=== PATIENT | male | born 1965 | race Caucasian/White ===

== ENCOUNTER 2020-03-02 07:12 | Outpatient (CLI) | payer OTHER, SELFPAY ==
--- NOTE | ~2020-03-02 | MR_ITS ---
EXAMINATION: MR brain IAC wo con DATE: 03/02/2020 08:29 INDICATION: Confusion. Altered mental status. TECHNIQUE: Magnetic resonance imaging (MRI) of the brain and brainstem was performed without intraven ous contrast. Sequences included sagittal and axial T1-weighted FSE, axial diffusion-weighted FS EPI, axial T2*-weighted GRE, axial T2-weighted FLAIR Propeller, and axial T2-weighted Propeller. Apparent diffusion coefficient (ADC) maps were created. COMPARISON: None. FINDINGS: There are patchy areas of acute infarct involving left frontotemporal parietal region. Ther e is chronic encephalomalacia in the frontal lobes bilaterally. There is no intracranial hemorrhage o r abnormal mass lesion. The ventricles are normal in size. There is mild mucosal thickening in the pa ranasal sinuses. The orbits are normal. The mastoid air cells are normal. IMPRESSION: 1. Patchy areas of acute infarct involving left frontotemporal parietal region. 2. Chronic encephalomalacia in the bilateral frontal lobes. Reviewed, dictated and finalized at location A.
--- NOTE | ~2020-03-02 | US_ITS ---
EXAMINATION: US carotid duplex BI DATE: 03/02/2020 08:42 INDICATION: Acute infarct in left frontotemporal parietal region. TECHNIQUE: Grayscale, color Doppler, and pulsed Doppler images of the cervical carotid arteries were obtained. The degree of vessel stenosis is placed in one of the following categories: normal, <50%, 5 0-69%, >=70% but less than near-occlusion, near-occlusion, or total occlusion. Note that percent sten osis relative to normal distal artery lumen diameter is indirectly measured from velocity measurement s as described by Ramón, et al. Radiology 2003; 229:340-346. COMPARISON: None. FINDINGS: RIGHT: The right common carotid artery (CCA) peak systolic velocity (PSV) is 100 cm/s. The right internal ca rotid artery (ICA) PSV is 96 cm/s. The right ICA end-diastolic velocity (EDV) is 23 cm/s. The right I CA/CCA PSV ratio is 1.0. Grayscale and color Doppler images yield an estimate of <50% diameter reduct ion from plaque in the ICA. There is antegrade flow in the right vertebral artery. LEFT: The left CCA PSV is 95 cm/s. The left ICA PSV is 43 cm/s. The left ICA EDV is 16 cm/s. The left ICA/C CA PSV ratio is 0.5. Grayscale and color Doppler images yield an estimate of <50% diameter reduction from plaque in the ICA. There is antegrade flow in the left vertebral artery. IMPRESSION: 1. <50% stenosis in the right internal carotid artery. 2. <50% stenosis in the left internal carotid artery. Reviewed, dictated and finalized at location A.
== END 2020-03-02 07:13 | disposition home or self-care (01) ==
LOC: CHSIMG 07:14
PROVIDERS: PCP Internal Medicine; Visit Provider Internal Medicine
DX: R41.82 Altered mental status, unspecified (principal); I63.9 Cerebral infarction, unspecified
CPT/HCPCS: 70551; 93880

== ENCOUNTER 2022-01-25 10:16 | Outpatient (CLI) | payer OTHER, SELFPAY ==
--- NOTE | ~2022-01-25 | XR_ITS ---
XR chest 2V DATE: 01/25/2022 10:56 INDICATION: Cerebrovascular accident one year ago TECHNIQUE: 2 views COMPARISON: None FINDINGS: Normal heart size. Aortic arch calcification. No hilar or mediastinal enlargement. Mild discoid atelectasis or scarring overlying central and lower lung zones on lateral view. No pulmo nary consolidation, pleural effusion, pulmonary vascular congestion or pneumothorax is detected. Mild degenerative spurring of the thoracic spine. IMPRESSION: Minimal discoid atelectasis or scarring in the lower lung; otherwise no active cardiac pu lmonary disease Reviewed, dictated and finalized at location B. IMPRESSION: Minimal discoid atelectasis or scarring in the lower lung; otherwis e no active cardiac pulmonary disease
[2022-01-25 10:46] LABS: Basophils Percent Auto 0.9 % (0.0-1.0); Eosinophils Absolute Auto 0.21 K/mm3 (0.02-0.50); Eosinophils Percent Auto 1.9 % (1.0-6.0); Hematocrit 49.4 % (40.0-54.0); Hemoglobin 16.9 g/dL (14.0-18.0); Immature Granulocyte Absolute 0.08 K/mm3 (0.00-0.00); Immature Granulocyte Percent A 0.7 % (0.0-0.0); Lymphocytes Absolute Auto 2.44 K/mm3 (1.10-4.50); Lymphocytes Percent Auto 22.4 % (18.0-42.0); Mean Corpuscular HGB Conc 34.2 g/dL (32.0-36.0); Mean Corpuscular Hemoglobin 32.1 pg (27.0-31.0); Mean Corpuscular Volume 93.9 fL (78.0-102.0); Mean Platelet Volume 8.4 fl (8.7-11.0); Monocytes Absolute Auto 0.63 K/mm3 (0.10-0.90); Monocytes Percent Auto 5.8 % (2.0-11.0); Neutrophils Absolute Auto 7.5 K/mm3 (1.7-7.2); Neutrophils Percent Auto 68.3 % (50.0-70.0); Platelet Count Result 325 K/mm3 (150-420); Red Blood Count 5.26 M/mm3 (4.70-6.10); Red Cell Distribution Width 13.8 % (11.6-14.4); White Blood Count 10.9 K/mm3 (4.8-10.8)
[2022-01-25 10:50] LABS: Add Urine Microscopic? NO; Appearance Urine Clear (Clear); Bilirubin Urine Negative (Negative); Blood Urine Negative (Negative); Color Urine Light Yellow (Yellow); Glucose Urine UA Negative (Negative); Ketones Urine Negative (Negative); Leukocyte Esterase Ur Negative (Negative); Nitrate Urine Negative (Negative); Protein Urine Negative (Negative); Urobilinogen Urine 0.2 mg/dL (0.2-1.0); pH Urine 6.5 (5.0-8.0)
[2022-01-25 11:22] LABS: Alanine Aminotransferase 20 U/L (16-63); Albumin Level 4.2 g/dL (3.4-5.0); Alkaline Phosphatase 97 U/L (46-116); Anion Gap 6 mmol/L (8-16); Aspartate Amino Transferase 14 U/L (15-37); Bilirubin,Total 0.4 mg/dL (0.00-1.00); Blood Urea Nitrogen 9 mg/dL (7-18); Calcium 8.9 mg/dL (8.5-10.1); Carbon Dioxide 32 mmol/L (21-32); Chloride 103 mmol/L (98-108); Cholesterol 182 mg/dL (0-200); Estimated Glomerular Filt Rate > 60; Glucose 83 mg/dL (70-99); HDL Direct 34 mg/dL (40-60); LDL Cholesterol Calculated 111 mg/dL (<130); Osmolality Calculated 289 mOsm/kg (285-295); Potassium 4.7 mmol/L (3.5-5.1); Prostate Specific Antigen 1.7 ng/mL (< OR = 4.0); Sodium 141 mmol/L (136-145); Thyroid Stimulating Hormone 1.21 uIU/mL (0.36-3.74); Total Protein 7.4 g/dL (6.4-8.2); Triglycerides 185 mg/dL (0-150)
== END 2022-01-25 10:17 | disposition home or self-care (01) ==
LOC: CHSLAB 10:17
PROVIDERS: PCP Internal Medicine; Visit Provider Internal Medicine
DX: Z00.00 Encounter for general adult medical examination without abnormal findings (principal); I63.9 Cerebral infarction, unspecified; Z12.5 Encounter for screening for malignant neoplasm of prostate
CPT/HCPCS: 36415; 71046; 80053; 80061; 81003; 84153; 84443; 85025; G0103

== ENCOUNTER 2022-02-22 02:28 | Day surgery (SDC) | payer OTHER, SELFPAY ==
[2022-02-16 13:42] VITALS: BMI 34.8
[2022-02-22 06:31] VITALS: BP 131/84; PULSE 85; RESP 18; TEMP 36.5; O2SAT 96; BMI 34.0
[2022-02-22] MEDS: LACTATED RINGERS 1,000 ML 150 ML IV CONT (06:43)
--- NOTE | 2022-02-22 07:31 | SUR.PREOP ---
Patient did not tolerate prep. Vomited majority of prep and reports stools as chocolate milk colored. Dr. Hernandez aware and will reschedule colonoscopy at a later date.
== END 2022-02-22 07:38 | disposition home or self-care (01) ==
PROVIDERS: PCP Internal Medicine; Visit Provider Surgery
PROC: 0DJD8ZZ Inspection of Lower Intestinal Tract, Via Natural or Artificial Opening Endoscopic (ICD-10-PCS; CPT 45378; principal; 2022-02-22 07:30)
DX: Z12.11 Encounter for screening for malignant neoplasm of colon (principal)
CPT/HCPCS: 99212; G0463; J7120

== ENCOUNTER 2022-03-05 08:38 | Outpatient (CLI) | payer OTHER, SELFPAY ==
--- NOTE | 2022-03-05 08:30 | ECG_ITS ---
Measurements Intervals [place] Rate: 76 P: 14 KS: 144 QRS: -8 QRSD: 113 T: -19 QT: 360 QTc: 406 Interpretive Statements SINUS RHYTHM SUSPECT PRIOR INFERIOR MYOCARDIAL INFARCTION [40+ ms Q WAVE AND/OR ST/T ABNORMALITY IN II/aVF], OF INDETERMINATE AGE NO PREVIOUS ECG AVAILABLE FOR COMPARISON Electronically Signed On 03-05-2022 12:52:36 CDT by Scar Guaman M.D.
== END 2022-03-05 08:39 | disposition home or self-care (01) ==
LOC: ANHSURGERY 08:42
PROVIDERS: PCP Internal Medicine; Visit Provider Surgery
DX: Z01.818 Encounter for other preprocedural examination (principal); Z72.0 Tobacco use; K42.9 Umbilical hernia without obstruction or gangrene; R94.31 Abnormal electrocardiogram [ECG] [EKG]
CPT/HCPCS: 36415; 86850; 86900; 86901; 93005

== ENCOUNTER 2022-03-07 00:18 | Day surgery (SDC) | payer OTHER, SELFPAY ==
[2022-03-01 14:38] VITALS: BMI 34.5
--- NOTE | 2022-03-01 14:46 | PC.NURSE ---
Report to the Outpatient Waiting Room, entrance under the green pavilion located off [facility], at time 9:30 on date 03/07/22. Planned Procedure Time: 11:30. Time changes happen often and if your time is changed the preop area will call you the afternoon before. - You and your visitor will be asked to self-screen and do not enter if you have any COVID symptoms. - We encourage only one visitor and NO visitors under age 16 are allowed at this time. Your visitor will receive communication by the phone number that is given day of service. - The patient visitor is requested to social distance or may leave the building when not with patient due to restrictions. - A mask is OPTIONAL within the hospital. Patients may have clear liquids (water, carbonated beverages, clear teas, apple juice) until 3 hours prior to surgery (8:30) with a maximum of 20 ounces. - No food from midnight until time of surgery Take the following medications with a SIP of water the morning of surgery: NONE Medications to discontinue per physician: N/A Date to take last dose: N/A Please no make-up, nail new zealander, hairspray, perfume, deodorant, or body powder the day of surgery. No jewelry (including any body piercings) or valuables the day of surgery, leave them at home. Please take a shower or bath the night before, or the morning of, surgery with an antibacterial soap (HIBICLENS). Wear comfortable, loose fitting clothing. - Jewelry must be removed prior to entering the operating room. Rings and piercings that are not removed may be cut off. - The hospital will not accept responsibility for valuables. - Please leave all valuables, including medications, at home the day of surgery. If you are going home after surgery, a licensed otr driver must drive you home. - NO public transportation without another adult. - We recommend that an adult stay with you for 24 hours following discharge. - We also recommend that you do not drive, make important decision, drink alcoholic beverages, or take any drugs that were not prescribed by your health care provider for at least 24 hours after your discharge time. Follow any additional instructions given to you from your surgeon. If you or anyone in your household have experienced Covid symptoms in the past week, please notify your surgeon or the nurse liaison at the phone number below for possible testing. Telephone instructions given to PT MOTHER - LORETO and asked if any additional questions and then verbalized understanding. Patient advised to call surgeon office or pre surgery nurse liaison [phone] if any additional questions.
[2022-03-07] VITALS (8 sets, daily range): BP systolic 125–139; BP diastolic 81–95; PULSE 85–98; RESP 12–20; TEMP 36.5–37.2; O2SAT 90–100; BMI 33.5
[2022-03-07] MEDS: ACETAMINOPHEN 500 MG TABLET 1000 MG PO (10:16)
[2022-03-07] MEDS: LACTATED RINGERS 1,000 ML 30 ML IV CONT ×2 (10:25→14:00)
[2022-03-07] MEDS: KETOROLAC 15 MG/ML VIAL (*BKC) IV PUSH (10:29)
--- NOTE | 2022-03-07 10:33 | WPDANESEPPF ---
Anes - Initial Pre Proc Eval Procedure: Operation Date: 03/07/22 11:30 Proposed Procedures p Laparoscopic Umbilical Hernia Repair with Mesh, Davinci Assisted - Lloyd Hernandez DO Date/Time: 03/07/22 10:33 Surgeon: Lloyd Hernandez DO Pre Op Diagnosis: umbilical hernia Patient Data Age: 56 Gender: M Height: 1.66 m Weight: 92.7 kg Last Vital Signs Temp 36.5 C 03/07/22 09:35 Pulse 88 03/07/22 09:35 Resp 16 03/07/22 09:35 BP 138/95 H 03/07/22 09:35 Pulse Ox 99 03/07/22 09:35 O2 Del Method Room Air 03/07/22 09:35 Allergies Allergy/AdvReac Type Severity Reaction Status Date / Time No Known Allergies Allergy Unknown Verified 03/07/22 09:42 Home Medications Medication Instructions Recorded Confirmed Type aspirin 81 mg tablet,delayed 81 mg PO DAILY 02/15/22 03/01/22 History release atorvastatin 10 mg tablet 10 mg PO DAILY 02/16/22 03/01/22 History peg-electrolyte solution 420 gram 240 ml PO Q10M #4,000 mL 03/06/22 Rx oral solution Patient hx anesthesia problems: none Family hx anesthesia problems: none Results Review: All pre-operative results and documents have been reviewed as part of the pre-operative evaluation. [facility] Past Medical History Medical History Stroke Surgical History Surgical History History of ankle surgery Hx of appendectomy Family History Family History Other Cancer Nervous disorder Social History Social History Smoking packs per day: 1 Smoking cigarettes per day: 20.0 Years smoked: 33 Smoking pack-years: 33.00 Smoking status: Current every day smoker Tobacco type: cigarettes Alcohol intake: never Alcohol use details: stopped drinking a long time ago Substance use: current Substance use type: marijuana Living arrangements: with family Spiritual care concerns: No Anes - Eval Final PreProcedure Day of Procedure 11/02/22 10:33 Patient weight: obese Heart: regular rate and rhythm Lungs: clear to auscultation Airway: Mallampati scale class II and special considerations poor dentition Neurological: alert and oriented Last oral intake: >/= 8 hours ASA classification: III Emergent: no Anesthetic plan: proceed Anesthesia type and monitoring: general ETT and standard monitoring Results Review: All pre-operative results and documents have been reviewed as part of the pre-operative evaluation. Informed Consent: The patient's anesthetic plan and its attendant risks and benefits were discussed with the patient/family/POA. Questions were solicited and answers provided to the satisfaction of the patient/family/POA.
--- NOTE | 2022-03-07 11:38 | SUR.PREOP ---
1138- Notified patient, Live and mother procedure start time will be delayed. Patient and mother verbalized understanding.
--- NOTE | 2022-03-07 11:44 | WPDHPUPDATE1 ---
History and Physical Update Update Date/Time: 03/07/22 11:44 History and Physical has been reviewed, including an updated exam of the patient. There are NO changes in the patient's condition. Risks, benefits, and alternatives have been discussed and questions answered. Patient agrees to proceed with procedure.
[2022-03-07] MEDS: ceFAZolin 2 GM/D5W 50 ML 2 GM/50 ML BAG IVPB (12:19)
--- NOTE | 2022-03-07 14:04 | W.PM.PROC2 ---
Procedure Note - Detailed Date of Procedure 03/07/22 Pre-op Diagnosis umbilical hernia Post-op Diagnosis Same Procedure Performed Laparoscopic Umbilical Hernia Repair with Mesh, da Mark assisted Surgeon Lloyd Hernandez DO Anesthesia General and Local (Exparel) Indications This is a 56-year-old man who presented with an umbilical bulge that he noticed several years ago. This has gradually increased in size. He was found to have a 2 cm umbilical hernia on physical exam. Discussions were made with the patient about treatment options and decision was made to proceed with robotic assisted laparoscopic umbilical hernia repair with mesh. Findings Laparoscopic umbilical hernia repair was performed. A robotic transabdominal preperitoneal approach was utilized. The patient was found to have a 1 cm umbilical hernia containing preperitoneal fat. The hernia sac was reduced along with the preperitoneal fat. The hernia defect was closed using 0 Stratafix running absorbable suture. A 15 cm x [address] mesh was then placed within the preperitoneal pocket and secured to the abdominal wall using 3-0 Vicryl simple interrupted sutures. No specimens were obtained for pathology. Description of Procedure Procedure as well as risks, benefits, and alternatives were discussed with the patient. Written consent was obtained and placed in chart prior to procedure. Patient was brought back to surgical suite. He was placed supine on operating table. Time-out was done to confirm patient and procedure. he was then intubated by the anesthesia department. A bump was placed under his left hip, and the bed was flexed slightly to extend the space between his costal margin and iliac crest. his abdomen was prepped and draped in sterile fashion using chlorhexidine prep. A 5 millimeter incision was made in the left upper quadrant, and a 5 millimeter Optiview trocar was advanced through the abdominal layers under direct visualization. Once inside the abdominal cavity, carbon dioxide insufflation was used to create a pneumoperitoneum. his abdomen was inspected. An 8 millimeter incision was made in the left lower quadrant, and an 8 millimeter robotic trocar was placed under direct visualization. Another 8 millimeter incision was made in the left lateral abdomen, and an 8 millimeter robotic trocar was placed under direct visualization. Exparel was infiltrated along the lateral abdominal daigle to perform a transversus abdominis plane block bilaterally. The 5 millimeter port was removed, the incision was extended to 12 millimeters, and a 12 millimeter air seal port was placed under direct visualization. A Ulices-Zhu cone was also used to place an 0-Vicryl simple interrupted suture at this trocar site. The robotic arms were brought up to the patient's bedside and secured to the ports. The camera and instruments were inserted, and I then moved over to the robotic console and took control of the camera and instruments. After careful thorough inspection of the abdominal cavity, I began my dissection at the hernia. I began creating a preperitoneal pocket along the left lateral abdominal wall and extended this medially to the hernia sac and then carefully dissected the hernia sac and preperitoneal fat down from the hernia defect. The preperitoneal plane was then dissected far enough to the right lateral side to allow for at adequate space for mesh placement.. I then measured the hernia size. The hernia measured 1 cm. The fascia was closed using an 0-Stratafix running suture in a vertical fashion. A Ventralight ST 15 cm x 10 cm mesh was then placed within the preperitoneal pocket.. This was oriented vertically with the mesh centered on the hernia defect. The mesh was then secured At the 4 corners and central portion of the mesh using 3-0 Vicryl simple interrupted sutures. The peritoneum was then closed over the mesh using 3-0 V lock running absorbable suture. Th
== END 2022-03-07 16:05 | disposition home or self-care (01) ==
PROVIDERS: PCP Internal Medicine; Visit Provider Surgery
PROC: (CPT 49652; principal; 2022-03-07 11:30)
DX: K42.9 Umbilical hernia without obstruction or gangrene (principal); Z86.73 Personal history of transient ischemic attack (TIA), and cerebral infarction without residual deficits; Z79.82 Long term (current) use of aspirin; F17.210 Nicotine dependence, cigarettes, uncomplicated; F12.90 Cannabis use, unspecified, uncomplicated; E66.9 Obesity, unspecified; Z68.33 Body mass index [BMI] 33.0-33.9, adult
CPT/HCPCS: 49652; S2900; A9270; C1781; C9290; J0330; J0690; J1100; J1170; J1885; J2250; J2405; J2704; J2710; J2765; J3010; J7030; J7120

== ENCOUNTER 2022-08-27 09:36 | Outpatient (CLI) | payer OTHER, SELFPAY ==
[2022-08-27 09:47] LABS: Basophils Absolute Auto 0.12 K/mm3 (0.00-0.10); Basophils Percent Auto 1.1 % (0.0-1.0); Eosinophils Absolute Auto 0.15 K/mm3 (0.02-0.50); Eosinophils Percent Auto 1.4 % (1.0-6.0); Hematocrit 50.7 % (40.0-54.0); Hemoglobin 17.3 g/dL (14.0-18.0); Immature Granulocyte Absolute 0.06 K/mm3 (0.00-0.00); Immature Granulocyte Percent A 0.6 % (0.0-0.0); Lymphocytes Absolute Auto 2.41 K/mm3 (1.10-4.50); Lymphocytes Percent Auto 23.1 % (18.0-42.0); Mean Corpuscular HGB Conc 34.1 g/dL (32.0-36.0); Mean Corpuscular Volume 93.7 fL (78.0-102.0); Mean Platelet Volume 8.2 fl (8.7-11.0); Monocytes Absolute Auto 0.53 K/mm3 (0.10-0.90); Monocytes Percent Auto 5.1 % (2.0-11.0); Neutrophils Absolute Auto 7.2 K/mm3 (1.7-7.2); Neutrophils Percent Auto 68.7 % (50.0-70.0); Platelet Count Result 320 K/mm3 (150-420); Red Blood Count 5.41 M/mm3 (4.70-6.10); Red Cell Distribution Width 12.3 % (11.6-14.4); White Blood Count 10.4 K/mm3 (4.8-10.8)
[2022-08-27 10:39] LABS: Alanine Aminotransferase 29 U/L (16-63); Alkaline Phosphatase 102 U/L (46-116); Anion Gap 9 mmol/L (8-16); Aspartate Amino Transferase 17 U/L (15-37); Bilirubin,Total 0.4 mg/dL (0.00-1.00); Blood Urea Nitrogen 10 mg/dL (7-18); Calcium 8.9 mg/dL (8.5-10.1); Carbon Dioxide 28 mmol/L (21-32); Chloride 104 mmol/L (98-108); Cholesterol 173 mg/dL (0-200); Creatine Kinase 68 U/L (39-308); Estimated Glomerular Filt Rate > 60; Free T3 3.44 pg/mL (2.18-3.98); Free T4 Free Thyroxine 1.08 ng/dL (0.76-1.46); Glucose 98 mg/dL (70-99); HDL Direct 36 mg/dL (40-60); LDL Cholesterol Calculated 105 mg/dL (<130); Osmolality Calculated 291 mOsm/kg (285-295); Potassium 4.3 mmol/L (3.5-5.1); Sodium 141 mmol/L (136-145); Thyroid Stimulating Hormone 2.45 uIU/mL (0.36-3.74); Total Protein 7.6 g/dL (6.4-8.2); Triglycerides 162 mg/dL (0-150)
== END 2022-08-27 09:37 | disposition home or self-care (01) ==
LOC: CHSLAB 09:38
PROVIDERS: PCP Internal Medicine; Visit Provider Internal Medicine
DX: E78.2 Mixed hyperlipidemia (principal); R53.82 Chronic fatigue, unspecified
CPT/HCPCS: 36415; 80053; 80061; 82550; 84439; 84443; 84481; 85025

== ENCOUNTER 2022-09-06 09:50 | Outpatient (CLI) | payer OTHER, SELFPAY ==
--- NOTE | ~2022-09-06 | CT_ITS ---
CT Scan of the Chest without Contrast: Clinical Indication: Lung cancer screening, personal history of tobacco dependence Technique: Contiguous sections were acquired throughout the chest without intravenous contrast. Dose reduction technique was used on this scan by utilizing automated exposure control and iterative recon struction technique. The dose-length product (DLP) was 189.93 mGy-cm. Findings: There is no evidence of any significant mediastinal, hilar or axillary lymphadenopathy. The mediastin al soft tissues appear normal. There is no evidence of pleural or pericardial effusion. There is a 5 mm nodule in the superior segment right lower lobe adjacent to the fissure (axial image 39). There is a noncalcified 5 mm nodule in the medial left upper lobe (axial image 48). There is a s mall calcified left infrahilar lymph node versus pulmonary nodule, with benign appearance in either e vent. Calcified left lower lobe granuloma noted at the left lung base. There is probable minimal emph ysematous change in the lungs. Images through the upper abdomen reveal no abnormalities. Impression: Lung RADS 2: Benign appearance. 12 month follow-up screening CT recommended. Reviewed, dictated and finalized at location . Impression: Lung RADS 2: Benign appearance. 12 month follow-up screening CT recommended.
== END 2022-09-06 09:51 | disposition home or self-care (01) ==
LOC: CHSIMG 09:51
PROVIDERS: PCP Internal Medicine; Visit Provider Internal Medicine
DX: Z12.2 Encounter for screening for malignant neoplasm of respiratory organs (principal); Z87.891 Personal history of nicotine dependence
CPT/HCPCS: 71271

== ENCOUNTER 2023-09-10 11:56 | Emergency (ER) | payer OTHER, SELFPAY ==
--- NOTE | ~2023-09-10 | CT_ITS ---
EXAMINATION: CT abdomen pelvis w con DATE: 09/10/2023 13:05 INDICATION: Left lower quadrant abdominal pain. Diarrhea. TECHNIQUE: Computed tomography (CT) of the abdomen and pelvis was performed with 100 mL Omnipaque 350 intravenous contrast. Automated exposure control and iterative reconstruction technique were employe d. The dose-length product was 1016.86 mGy-cm. COMPARISON: None. FINDINGS: The visualized portions of the lung bases demonstrate mild atelectasis. A calcified left chris ng nodule is consistent with old granulomatous disease. No pleural effusion. The heart size is normal . No pericardial effusion. The liver, gallbladder, spleen, pancreas, and adrenal glands are normal. T here are cysts in right kidney measuring up to 4.8 cm. There are 3 stones in right kidney measuring u p to 5 mm. There is a 9 mm stone in left kidney. The prostate is mildly enlarged. There are scattered diverticula in the colon. There is wall thickening of the sigmoid colon with surrounding fat strandi ng. This area of sigmoid colon is small in caliber, likely a stricture. There is a fistula between ad jacent areas of sigmoid colon. There is a fistula from sigmoid colon to an adjacent small bowel loop. The colon is distended proximal to this area. The appendix is not visualized. There are no pathologi nichelle enlarged lymph nodes. There is no free intraperitoneal fluid. There is mild thoracic and lumbar spondylosis. IMPRESSION: 1. Chronic diverticulitis involving sigmoid colon with stricture and partial obstruction. Reviewed, dictated and finalized at location A. IMPRESSION: 1. Chronic diverticulitis involving sigmoid colon with stricture and partial ob struction.
[2023-09-10 11:56] VITALS: BP 155/100; PULSE 76; RESP 18; TEMP 36.7; O2SAT 99
--- NOTE | 2023-09-10 11:58 | ED.ABDPAIN ---
HPI - Abdominal Pain General Chief Complaint: Abdominal Pain Stated Complaint: ABD pain Time Seen by Provider: 09/10/23 11:56 Source: patient Mode of arrival: ambulatory Limitations: no limitations History of Present Illness HPI narrative: patient is a 58-year-old male with left lower quadrant abdominal pain for the past week. He was at the primary doctor today and they sent into the ER for evaluation. MD elicited complaint: abdominal pain Pertinent past history: none Onset (ago): week(s) (1) Pain Consistency: intermittent Location: LLQ Severity: severe Pain scale (0-10): 8 Quality: sharp Radiation: none Migration to: suprapubic Exacerbating factors: nothing Relieving factors: nothing Associated symptoms: nausea, vomiting and diarrhea Related Data Home Medications Medication Instructions Recorded Confirmed aspirin 81 mg tablet,delayed 81 mg PO DAILY 02/15/22 09/10/23 release atorvastatin 10 mg tablet 10 mg PO DAILY 02/16/22 09/10/23 Allergies Allergy/AdvReac Type Severity Reaction Status Date / Time No Known Allergies Allergy Unknown Verified 09/10/23 13:45 Review of Systems Review of Systems: All systems reviewed & are unremarkable except as noted in HPI and below Constitutional: Constitutional: Reports no additional constitutional complaints Eyes: Eyes: Reports no additional eye complaints ENT: Reports system reviewed and no additional complaints, except as documented Cardiovascular: Cardiovascular: Reports no additional cardiovascular complaints Respiratory: Respiratory: Reports no additional respiratory complaints Gastrointestinal: Gastrointestinal: Reports no additional gastrointestinal complaints Genitourinary: Genitourinary: Reports no additional male genitourinary complaints Musculoskeletal: Musculoskeletal: Reports no additional musculoskeletal complaints Integumentary/Breasts: Skin/Breast: Reports system reviewed and no additional complaints, except as docu Neurologic: Reports system reviewed and no additional complaints, except as documented Psychiatric: Psychiatric: Reports no additional psychiatric complaints Endocrine: Endocrine: Reports no additional endocrine complaints Hematologic/Lymphatic: Hematologic/Lymphatic: Reports no additional hematologic/lymphatic complaints Allergic/Immunologic: Allergic/Immunologic: Reports no additional allergic/immunologic complaints PMFSH Past Medical History Medical History Stroke Surgical History Surgical History H/O umbilical hernia repair 03/07/22 Laparoscopic Umbilical Hernia Repair with Mesh, da Mark assisted History of ankle surgery Hx of appendectomy Family History Family History Other Cancer Nervous disorder Social History Social History Smoking packs per day: 1 Smoking cigarettes per day: 20.0 Years smoked: 33 Smoking pack-years: 33.00 Smoking status: Current every day smoker Tobacco type: cigarettes Alcohol intake: never Alcohol use details: stopped drinking a long time ago Substance use: current Substance use type: marijuana Living arrangements: with family Spiritual care concerns: No Exam Const: General: healthy appearing Nutritional Appearance: well nourished Orientation/consciousness: patient oriented x3 HENMT: Head: normal to inspection Ears: external ears normal Face/Nose/Sinus: Normal external nose present Eyes: Conjunctivae: conjunctivae normal Pupils: Equal, round and reactive pupils present EOM: EOMs intact bilaterally Neck: Neck: normal visual inspection Chest: Chest palpation & inspection: normal inspection of the chest Resp: Effort & Inspection: normal respiratory effort and not labored Auscultation: clear to auscultation bilaterally Cardio
[2023-09-10 12:23] LABS: Appearance Urine Clear (Clear); Bilirubin Urine Negative (Negative); Blood Urine Negative (Negative); Color Urine Light Yellow (Yellow); Glucose Urine UA Negative (Negative); Ketones Urine Negative (Negative); Leukocyte Esterase Ur Negative LEU/UL (Negative); Nitrate Urine Negative (Negative); Protein Urine Negative (Negative); Urobilinogen Urine 0.2 mg/dL (0.2-1.0)
[2023-09-10 12:25] LABS: Add Urine Microscopic? NO
[2023-09-10 12:28] LABS: Basophils Absolute Auto 0.11 K/mm3 (0.00-0.10); Basophils Percent Auto 0.9 % (0.0-1.0); Eosinophils Absolute Auto 0.18 K/mm3 (0.02-0.50); Eosinophils Percent Auto 1.5 % (1.0-6.0); Hematocrit 48.7 % (40.0-54.0); Hemoglobin 16.5 g/dL (14.0-18.0); Immature Granulocyte Absolute 0.06 K/mm3 (0.00-0.00); Immature Granulocyte Percent A 0.5 % (0.0-0.0); Lymphocytes Absolute Auto 3.05 K/mm3 (1.10-4.50); Lymphocytes Percent Auto 25.2 % (18.0-42.0); Mean Corpuscular HGB Conc 33.9 g/dL (32-36); Mean Corpuscular Hemoglobin 30.6 pg (27.0-31.0); Mean Corpuscular Volume 90.4 fL (78.0-102.0); Mean Platelet Volume 8.7 fl (8.7-11.0); Monocytes Absolute Auto 0.65 K/mm3 (0.10-0.90); Monocytes Percent Auto 5.4 % (2.0-11.0); Neutrophils Absolute Auto 8.05 K/mm3 (1.70-7.20); Neutrophils Percent Auto 66.5 % (50.0-70.0); Platelet Count Result 339 K/mm3 (150-420); Red Blood Count 5.39 M/mm3 (4.70-6.10); Red Cell Distribution Width 12.2 % (11.6-14.4); White Blood Count 12.1 K/mm3 (4.8-10.8)
[2023-09-10] MEDS: SODIUM CHLORIDE 0.9% IV 1,000 ML 999 ML IV CONT (12:29)
[2023-09-10] MEDS: MORPHINE SULFATE (*CRX) 2 MG/ML INJ 4 MG IV PUSH (12:32)
[2023-09-10] MEDS: ONDANSETRON INJ 4 MG/2 ML VIAL IV PUSH (12:35)
[2023-09-10 12:42] LABS: Alanine Aminotransferase 24 U/L (16-63); Albumin Level 3.9 g/dL (3.4-5.0); Alkaline Phosphatase 87 U/L (46-116); Anion Gap 7 mmol/L (4-12); Aspartate Amino Transferase 13 U/L (15-37); Bilirubin,Total 0.5 mg/dL (0.00-1.00); Blood Urea Nitrogen 8 mg/dL (7-18); Calcium 8.7 mg/dL (8.5-10.1); Carbon Dioxide 31 mmol/L (21-32); Chloride 103 mmol/L (98-108); Estimated CRCL calculation 77 ml/min; Estimated Glomerular Filt Rate > 60; Glucose 93 mg/dL (70-99); Lipase 24 U/L (16-77); Osmolality Calculated 290 mOsm/kg (285-295); Partial Thromboplastin Time 25.1 Sec (23.9-30.70); Prothrombin Time 10.6 Seconds (9.50-12.1); Sodium 141 mmol/L (136-145); Total Protein 7.6 g/dL (6.4-8.2)
[2023-09-10 12:47] LABS: Lactic Acid Reflex 0.9 mmol/L (0.4-2.0)
--- NOTE | 2023-09-10 12:57 | PC.NURSE ---
PT IS IN CT AT THIS TIME. PT HAD REPORTED THE MORPHINE MADE HIM NAUSEATED. PT WAS GIVEN ZOFRAN FOR THE NAUSEA. PT REPORTS HE IS PAIN FREE, AND NAUSEA IMPROVED. MOTHER REMAINS AT BEDSIDE. WILL CONTINUE TO MONITOR.
--- NOTE | 2023-09-10 13:11 | PC.NURSE ---
PT HAS TURNED FROM CT, AT BEDSIDE. PT AMBULATORY FROM [facility] WITHOUT DIFFICULTY.
[2023-09-10 13:44] VITALS: BP 137/84; PULSE 64; RESP 18; O2SAT 98
--- NOTE | 2023-09-10 14:19 | PC.NURSE ---
PT UP TO RR WITHOUT DIFFICULTY, PT IS AWAITING RETURN CALL FROM SURGEON AT THIS TIME. PT AND MOTHER ARE AWARE OF PLAN OF CARE. PT DENIES ANY PAIN AT THIS TIME. PER ERP, NO NG TUBE WARRANTED AT THIS TIME DUE AUDIBLE BOWEL SOUNDS, PT IS PAIN FREE. WILL CONTINUE TO MONITOR.
[2023-09-10] MEDS: PIPERACILLN/TAZ 3.375GM/NS50ML 3.375 GM/50 ML BAG IVPB (15:00)
--- NOTE | 2023-09-10 15:29 | PC.NURSE ---
PT REPORTS HE LAST ATE LAST PM, DID HAVE A PEPSI AND COFFEE THIS AM. PT IS AWAITING RETURN CALL FROM [facility] AT THIS TIME. FAMILY AT BEDSIDE. WILL CONTINUE TO MONITOR.
[2023-09-10 16:07] VITALS: BP 132/74; PULSE 62; RESP 16; TEMP 36.1; O2SAT 99
--- NOTE | 2023-09-16 16:49 | PC.NURSE ---
09/16/23 FINAL BLOOD CULTURE NO GROWTH AFTER 5 DAYS
== END 2023-09-10 16:40 | disposition short-term general hospital (02) ==
PROVIDERS: Emergency Provider Emergency Medicine; PCP Internal Medicine
DX: K56.690 Other partial intestinal obstruction (principal); K57.32 Diverticulitis of large intestine without perforation or abscess without bleeding; Z79.82 Long term (current) use of aspirin; F17.210 Nicotine dependence, cigarettes, uncomplicated
CPT/HCPCS: 36415; 74177; 80053; 81003; 83605; 83690; 85025; 85610; 85730; 87040; 96361; 96365; 96375; 99285; J2270; J2405; J2543; J7030; Q9967

== ENCOUNTER 2023-09-10 17:31 | Observation (INO) | payer OTHER, SELFPAY ==
--- NOTE | ~2023-09-10 | XR_ITS ---
EXAMINATION: XR enema water soluble DATE: 09/11/2023 13:19 INDICATION: Sigmoid obstruction. TECHNIQUE: A power transformer inspector radiograph was obtained. A catheter was inserted into the patient's rectum. Contra st was infused by gravity. Fluoroscopic spot images and conventional radiographs were obtained. Fluor oscopy exposure time was 0.6 minutes. The total number of images was 19. COMPARISON: CT abdomen and pelvis 09/10/2023 FINDINGS: There is a long stricture of the sigmoid colon with fistula between adjacent areas of the s igmoid colon. The colon is dilated proximal to the stricture. IMPRESSION: 1. Chronic sigmoid diverticulitis involving the sigmoid colon with stricture and partial obstruction. Reviewed, dictated and finalized at location A. IMPRESSION: 1. Chronic sigmoid diverticulitis involving the sigmoid colon with stricture an d partial obstruction.
--- NOTE | 2023-09-10 17:20 | ADMGEN ---
This patient, Live Aguilar, was admitted to Medical Room 246-01. Patient/family oriented to hospital policies and general routines including ID bracelet, bed and alarms, visiting hours, pain management, procedures, bathroom and other care routines, personal items, smoking policy, room service/diet, and visiting hours. Information on how to activate the Rapid Response Team has been discussed. Patient/Family are encouraged to report perceived risks to care and to ask questions if they do not understand what they are told or what they should do.
--- NOTE | 2023-09-10 17:35 | PM.IMHP ---
H&P: HPI History of Present Illness Date/Time: 09/10/23 17:35 Chief Complaint: Abdominal pain. Narrative: This is a pleasant 58-year-old male smoker with history of stroke and diverticulitis who presented to the emergency department at [facility] earlier today for evaluation of left lower quadrant pain which is been ongoing for the past 7 to 10 days. The pain is in the left lower quadrant and occasionally radiates into the suprapubic region. It is intermittent without pattern and is described as sharp and shooting in nature. He denies significant aggravating or alleviating factors. Associated symptoms include sweats, nausea, dry heaves, and diarrhea. His abdomen is distended and he has been passing a lot of gas. He denies fever, chest pain, shortness of breath, hematemesis, melena, hematochezia, and hematuria. In the ED: Vital signs were stable and he was afebrile. CT of the abdomen and pelvis showed chronic diverticulitis of the sigmoid colon with stricture and partial destruction. Labs were significant for a WBC count of 12.1, hemoglobin 16.5, sodium 141, potassium 4.0, BUN 8, creatinine 0.90, lactic acid 0.9, glucose 93, lipase 24. Urinalysis was unremarkable. He was given a dose of Zosyn and IV pain medications and transfer was initiated to [place] for consultation with General surgery. Review of Systems Review of Systems: 12 systems were reviewed and are negative except for as per HPI. [facility] Past Medical History Medical History Cerebrovascular accident Residual mild right-sided weakness and memory issues. Tobacco abuse Surgical History Surgical History History of appendectomy History of open reduction and internal fixation (ORIF) procedure (1992) Repair left ankle fracture. History of umbilical hernia repair (03/2022) Laparoscopic umbilical hernia repair with mesh, da Mark assisted. Family History Family History Father Rheumatoid arthritis Lung cancer Acute myocardial infarction Social History Social History (Updated 09/10/23 @ 22:35 by Jenn Pierre PA-C) Social History: Surrogate medical decision maker: Matthew Penaloza (daughter) or Jenna Aguilar (mother). Code status: Full code. Smoking packs per day: 1 Smoking cigarettes per day: 20.0 Years smoked: 33 Smoking pack-years: 33.00 Smoking status: Current every day smoker Alcohol intake: never Alcohol use details: Has not had alcohol in years. 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 Spiritual care concerns: No Meds Home Medications and Allergies Home Medications Medication Instructions Recorded Confirmed Type aspirin 81 mg tablet,delayed 81 mg PO DAILY 02/15/22 09/10/23 History release atorvastatin 10 mg tablet 10 mg PO DAILY 02/16/22 09/10/23 History ibuprofen 800 mg tablet 800 mg PO Q8H PRN pain #30 tabs 03/07/22 09/10/23 Rx Allergies Allergy/AdvReac Type Severity Reaction Status Date / Time No Known Allergies Allergy Unknown Verified 09/10/23 17:37 Exam Narrative: General: Well-developed, nontoxic-appearing male in the semi-Fragoso position in bed in mild pain. Weight: 94.1 kg. BMI: 34.5. HEENT: PERRL, EOMI. Sclera anicteric. Tacky mucous membranes. Neck: Supple. Respiratory: Lungs are clear to auscultation bilaterally. C
[2023-09-10 17:48] VITALS: BMI 34.5
[2023-09-10 18:02] VITALS: RESP 18; O2SAT 98
[2023-09-10 18:22] VITALS: BP 151/78; PULSE 67; RESP 20; TEMP 36.8; O2SAT 95
[2023-09-10 19:23] VITALS: BP 153/83; PULSE 66; RESP 18; TEMP 35.9; O2SAT 94
[2023-09-10] MEDS: metroNIDAZOLE 500 MG/ISO 100ML 500 MG/100 ML BAG 100 MG IVPB (20:24)
[2023-09-11 04:20] VITALS: BP 134/82; PULSE 91; RESP 18; TEMP 35.8; O2SAT 93
[2023-09-11 05:17] LABS: Mean Corpuscular HGB Conc 34.1 g/dl (32-36); Mean Corpuscular Hemoglobin 31.4 pg (26-34); Mean Corpuscular Volume 92.1 fl (80-100); Mean Platelet Volume 8.8 fl (7.4-10.4); Platelet Count Result 256 k/mm3 (150-375); Red Blood Count 4.78 M/mm3 (4.6-6.20); Red Cell Distribution Width 12.3 % (11.5-14.5); White Blood Count 9.3 K/mm3 (4.5-10.0)
[2023-09-11 05:41] LABS: Anion Gap 5 mmol/L (4-12); Blood Urea Nitrogen 8 mg/dL (9-20); Calcium 8.5 mg/dL (8.4-10.2); Carbon Dioxide 25 mmol/L (22-30); Chloride 109 mmol/L (98-107); Estimated CRCL calculation 95 ml/min; Estimated Glomerular Filt Rate > 60; Glucose 90 mg/dL (65-110); Potassium 3.5 mmol/L (3.4-5.0); Sodium 139 mmol/L (137-145)
[2023-09-11] MEDS: metroNIDAZOLE 500 MG/ISO 100ML 500 MG/100 ML BAG 100 MG IVPB ×3 (06:19→21:43)
--- NOTE | 2023-09-11 11:59 | PM.CNGS ---
Assessment and Plan Assessment and plan (1) Partial obstruction of colon: Code(s): K56.600 - Partial intestinal obstruction, unspecified as to cause Status: Acute Assessment and Plan: Likely secondary to diverticular stricture, continue IV antibiotics and bowel rest at this time, will get Hypaque enema for further evaluation, GI consultation obtained as well (2) Diverticulitis of sigmoid colon: Code(s): K57.32 - Diverticulitis of large intestine without perforation or abscess without bleeding Status: Acute Assessment and Plan: continue conservative management with IV antibiotics, exam largely benign, we will start clear History of Present Illness Consult details Consult date: 09/11/23 Reason for consult: abdominal pain Requesting physician: Jenn Pierre PA-C Narrative: The patient is a 58-year-old male presenting to the hospital complaining of left lower quadrant abdominal pain, abdominal distension, nausea over the last 10 days or so. The patient reports over this time he has been having intermittent watery diarrhea. The patient reports increasing abdominal distension and nausea. The patient does have a history of diverticulitis in the past, however the symptoms are much more severe than usual. The patient also describes poor appetite, subjective fevers and chills. Workup, including imaging, is significant for diverticulitis with likely sigmoid stricture. Review of Systems Review of Systems: All systems reviewed & are unremarkable except as noted in HPI and below PMFSH Past Medical History Medical History Cerebrovascular accident Residual mild right-sided weakness and memory issues. Tobacco abuse Surgical History Surgical History History of appendectomy History of open reduction and internal fixation (ORIF) procedure (1992) Repair left ankle fracture. History of umbilical hernia repair (03/2022) Laparoscopic umbilical hernia repair with mesh, da Mark assisted. Family History Family History Father Rheumatoid arthritis Lung cancer Acute myocardial infarction Social History Social History Social History: Surrogate medical decision maker: Matthew Penaloza (daughter) or Jenna Murphyer (mother). Code status: Full code. Smoking packs per day: 1 Smoking cigarettes per day: 20.0 Years smoked: 33 Smoking pack-years: 33.00 Smoking status: Current every day smoker Alcohol intake: never Alcohol use details: Has not had alcohol in years. 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 Spiritual care concerns: No Meds Home Medications and Allergies Home Medications Medication Instructions Recorded Confirmed Type aspirin 81 mg tablet,delayed 81 mg PO DAILY 02/15/22 09/10/23 History release atorvastatin 10 mg tablet 10 mg PO DAILY 02/16/22 09/10/23 History ibuprofen 800 mg tablet 800 mg PO Q8H PRN pain #30 tabs 03/07/22 09/10/23 Rx Allergies Allergy/AdvReac Type Severity Reaction Status Date / Time No Known Allergies Allergy Unknown Verified 09/10/23 17:37 Vital Signs Vital Signs - 24 hr 09/10/23 18:02 09/10/23 18:22 09/10/23 19:23 Temperature 36.8 C 35.9 C L Pulse Rate 67 66 Respiratory Rate 18 20 18 Blood Pressure 151/78 H 153/83 H Pulse O
[2023-09-11 14:00] VITALS: BP 138/79; PULSE 76; RESP 20; TEMP 36.7; O2SAT 95
--- NOTE | 2023-09-11 15:04 | PM.IMPN ---
Progress Note: A&P Assessment and Plan (1) Diverticulitis of sigmoid colon: Code(s): K57.32 - Diverticulitis of large intestine without perforation or abscess without bleeding Status: Acute Assessment and Plan: CT scan showed chronic diverticulitis with stricture of the sigmoid colon and partial obstruction. Analgesics and antiemetics are available as needed. He received a dose of Zosyn at the outside facility and has been started on ceftriaxone and metronidazole on 09/10/23. General surgery consulted. Water-soluble enema performed showing chronic sigmoid diverticulitis with stricture and partial obstruction Patient started on clear liquid diet General surgery recommending GI consult (2) Stricture of sigmoid colon: Code(s): K56.699 - Other intestinal obstruction unspecified as to partial versus complete obstruction Status: Acute Assessment and Plan: CT abdomen pelvis as well as water-soluble enema showing stricture of the sigmoid colon GI consulted. (3) Partial obstruction of colon: Code(s): K56.600 - Partial intestinal obstruction, unspecified as to cause Status: Resolved Assessment and Plan: Patient has had multiple bowel movements water-soluble enema. Resolved (4) Tobacco abuse: Code(s): Z72.0 - Tobacco use Status: Acute Assessment and Plan: Smoking cessation is encouraged and was discussed. He declines the need for nicotine patch. Subjective Date/time seen: 09/11/23 15:04 Interval history: patient ruled today with no complaints at this time. general surgery evaluated the patient and recommended GI consult. Patient had water-soluble enema that revealed a partial obstruction and sigmoid colon stricture. patient did have multiple bowel movements after enema. Awaiting further recommendations. Patient no longer complaining left lower quadrant pain. Exam Narrative: GENERAL: Comfortable, no acute distress HENMT: moist mucous membranes EYES: EOM intact b/l NECK: no lymphadenopathy RESPIRATORY: clear to auscultation, no increased respiratory effort CARDIO: Regular rate and rhythm GI: soft, nontender, bowel sounds present SKIN/EXTREMITIES: no rashes, no edema, no redness or tenderness NEURO: PROM intact, answers questions appropriately, A&O x4 Objective Data Vital Signs Vital Signs: Vital Signs - 24 hr 09/10/23 18:02 09/10/23 18:22 09/10/23 19:23 Temperature 98.3 F 96.6 F L Pulse Rate 67 66 Respiratory Rate 18 20 18 Blood Pressure 151/78 H 153/83 H Pulse Oximetry 98 95 94 Oxygen Delivery Room Air 09/10/23 20:00 09/11/23 04:20 09/11/23 09:15 Temperature 96.5 F L Pulse Rate 91 Respiratory Rate 18 Blood Pressure 134/82 Pulse Oximetry 93 Oxygen Delivery Room Air Room Air 09/11/23 14:00 Temperature 98.1 F Pulse Rate 76 Respiratory Rate 20 Blood Pressure 138/79 Pulse Oximetry 95 Oxygen Delivery Intake/Output Intake/Output: Intake & Output 09/08/23 09/09/23 09/10/23 09/11/23 23:59 23:59 23:59 23:59 Intake Total 150 820 Balance 150 820 Meds/Results Medications: Active Medications Generic Name Dose Route Start Last Admin Trade Name Freq PRN Reason Stop Dose Admin Enoxaparin Sodium 40 mg 09/11/23 09:00 Enoxaparin 40 Mg/0.4 Ml Syringe SUB-Q DAILY ANNETTE Ceftriaxone Sodium 1 gm in 50 mls @ 100 mls/hr 09/10/23 18:00 09/10/23 19:06 Rocephin 1 Gm/Ns 50 Ml IVPB Infused Q24H ANNETTE Infusion Metronidazole 500 mg in 100 mls @ 100 mls/hr 09/10/23 20:00 09/11/23 14:21 Flagyl 500 Mg/Iso Soln 100 Ml IVPB 100 mls/hr Q8HR ANNETTE Administration Morphine Sulfate 2 mg 09/10/23 17:31 Morphine Sulfate (*Crx) 2 Mg/Ml Inj IV PUSH Q4H PRN Pain Rated 7-10 Ondansetron HCl 4 mg 09/10/23 17:33 Ondansetron Inj 4 Mg/2 Ml Vial IV PUSH Q6H PRN Nausea And Vomiting Radiology Results: ITS Impressions Enema w/Water Soluble
[2023-09-11 19:26] VITALS: BP 146/81; PULSE 70; RESP 18; TEMP 36.9; O2SAT 94
[2023-09-12 05:30] LABS: Hematocrit 46.4 % (42.0-52.0); Hemoglobin 15.7 g/dL (14.0-18.0); Mean Corpuscular HGB Conc 33.8 g/dl (32-36); Mean Corpuscular Volume 91.5 fl (80-100); Mean Platelet Volume 8.9 fl (7.4-10.4); Platelet Count Result 266 k/mm3 (150-375); Red Blood Count 5.07 M/mm3 (4.6-6.20); Red Cell Distribution Width 12.4 % (11.5-14.5); White Blood Count 8.7 K/mm3 (4.5-10.0)
[2023-09-12 05:47] LABS: Anion Gap 6 mmol/L (4-12); Blood Urea Nitrogen 10 mg/dL (9-20); Calcium 8.7 mg/dL (8.4-10.2); Carbon Dioxide 27 mmol/L (22-30); Chloride 105 mmol/L (98-107); Estimated CRCL calculation 85 ml/min; Estimated Glomerular Filt Rate > 60; Glucose 88 mg/dL (65-110); Potassium 3.6 mmol/L (3.4-5.0); Sodium 138 mmol/L (137-145)
[2023-09-12 06:00] VITALS: BP 146/89; PULSE 76; RESP 18; TEMP 36.8; O2SAT 97
[2023-09-12] MEDS: metroNIDAZOLE 500 MG/ISO 100ML 500 MG/100 ML BAG 100 MG IVPB ×2 (06:30→13:17)
[2023-09-12 08:00] VITALS: O2SAT 97
[2023-09-12] MEDS: ENOXAPARIN 40 MG/0.4 ML SYRINGE SUB-Q (08:33)
[2023-09-12] MEDS: ASPIRIN 81 MG ENTERIC TABLET PO (08:33)
[2023-09-12] MEDS: ATORVASTATIN 10 MG TABLET PO (08:33)
--- NOTE | 2023-09-12 09:29 | WPDPN ---
Progress Note: A&P Assessment and Plan (1) Diverticulitis of sigmoid colon: Code(s): K57.32 - Diverticulitis of large intestine without perforation or abscess without bleeding Status: Acute Assessment and Plan: exam benign, carla clears, WBC normalized, cont IV abx, advance to low fiber diet (2) Stricture of sigmoid colon: Code(s): K56.699 - Other intestinal obstruction unspecified as to partial versus complete obstruction Status: Acute Assessment and Plan: feels better after hypaque enema, +bowel fxn, will try low fiber diet Subjective Date/time seen: 09/12/23 09:29 Interval history: feels better, still some mild soreness, multiple loose BMs after hypaque enema yesterday Review of Systems Review of Systems: All systems reviewed & are unremarkable except as noted in HPI and below Exam Const: General: cooperative, comfortable and no acute distress Resp: Auscultation: clear to auscultation bilaterally Cardio: Rate: regular rate Rhythm: regular rhythm GI: Inspection: normal to inspection and distended GI Palp: Yes abdominal tenderness, Yes Soft to palpation, Yes Tenderness to palpation present (GI), No Guarding due to palpation present (GI) and No Rigid due to palpation Objective Data Vital Signs Vital Signs: Vital Signs - 24 hr 09/11/23 14:00 09/11/23 19:26 09/11/23 20:00 Temperature 36.7 C 36.9 C Pulse Rate 76 70 Respiratory Rate 20 18 Blood Pressure 138/79 146/81 H Pulse Oximetry 95 94 Oxygen Delivery Room Air 09/12/23 06:00 09/12/23 08:00 Temperature 36.8 C Pulse Rate 76 Respiratory Rate 18 Blood Pressure 146/89 H Pulse Oximetry 97 97 Oxygen Delivery Room Air Intake/Output Intake/Output: Intake & Output 09/09/23 09/10/23 09/11/23 09/12/23 23:59 23:59 23:59 23:59 Intake Total 150 1790 710 Balance 150 1790 710 Meds/Results Medications: Active Medications Generic Name Dose Route Start Last Admin Trade Name Freq PRN Reason Stop Dose Admin Aspirin 81 mg 09/12/23 09:00 09/12/23 08:33 Aspirin 81 Mg Enteric Tablet PO 81 mg DAILY ANNETTE Administration Atorvastatin Calcium 10 mg 09/12/23 09:00 09/12/23 08:33 Atorvastatin 10 Mg Tablet PO 10 mg DAILY ANNETTE Administration Enoxaparin Sodium 40 mg 09/11/23 09:00 09/12/23 08:33 Enoxaparin 40 Mg/0.4 Ml Syringe SUB-Q 40 mg DAILY ANNETTE Administration Ceftriaxone Sodium 1 gm in 50 mls @ 100 mls/hr 09/10/23 18:00 09/11/23 18:43 Rocephin 1 Gm/Ns 50 Ml IVPB Infused Q24H ANNETTE Infusion Metronidazole 500 mg in 100 mls @ 100 mls/hr 09/10/23 20:00 09/12/23 06:30 Flagyl 500 Mg/Iso Soln 100 Ml IVPB 100 mls/hr Q8HR ANNETTE Administration Morphine Sulfate 2 mg 09/10/23 17:31 Morphine Sulfate (*Crx) 2 Mg/Ml Inj IV PUSH Q4H PRN Pain Rated 7-10 Ondansetron HCl 4 mg 09/10/23 17:33 Ondansetron Inj 4 Mg/2 Ml Vial IV PUSH Q6H PRN Nausea And Vomiting Radiology Results: ITS Impressions Enema w/Water Soluble 09/11/23 13:48 IMPRESSION: 1. Chronic sigmoid diverticulitis involving the sigmoid colon with stricture and partial obstruction. Labs Labs: Laboratory Results - last 24 hr 09/12/23 04:43 WBC 8.7 RBC 5.07 Hgb 15.7 Hct 46.4 MCV 91.5 MCH 31.0 MCHC 33.8 RDW 12.4 Plt Count 266 MPV 8.9 Sodium 138 Potassium 3.6 Chloride 105 Carbon Dioxide 27 Anion Gap 6 BUN 10 Creatinine 0.90 Estim Creat Clear Calc 85 Estimated GFR > 60 Glucose 88 Calcium 8.7
--- NOTE | 2023-09-12 14:08 | PM.DS ---
DS: Admitting Diagnosis Discharge Date 09/12/23 Admitting Diagnosis Sigmoid diverticulitis DS: Discharge Diagnosis Discharge Diagnosis (1) Diverticulitis of sigmoid colon: Code(s): K57.32 - Diverticulitis of large intestine without perforation or abscess without bleeding Status: Acute (2) Stricture of sigmoid colon: Code(s): K56.699 - Other intestinal obstruction unspecified as to partial versus complete obstruction Status: Acute (3) Partial obstruction of colon: Code(s): K56.600 - Partial intestinal obstruction, unspecified as to cause Status: Resolved (4) Tobacco abuse: Code(s): Z72.0 - Tobacco use Status: Acute DS: Summary Hospital Course Hospital Course: This is a pleasant 58-year-old male smoker with history of stroke and diverticulitis who presented to the emergency department due to left lower quadrant and occasionally radiates into the suprapubic region. It is intermittent without pattern and is described as sharp and shooting in nature. He denies significant aggravating or alleviating factors. Associated symptoms include sweats, nausea, dry heaves, and diarrhea. His abdomen is distended and he has been passing a lot of gas. He denies fever, chest pain, shortness of breath, hematemesis, melena, hematochezia, and hematuria. In the ED: Vital signs were stable and he was afebrile. CT of the abdomen and pelvis showed chronic diverticulitis of the sigmoid colon with stricture and partial destruction. Labs were significant for a WBC count of 12.1, hemoglobin 16.5, sodium 141, potassium 4.0, BUN 8, creatinine 0.90, lactic acid 0.9, glucose 93, lipase 24. Urinalysis was unremarkable. He was given a dose of Zosyn and IV pain medications and transfer was initiated to [facility] for consultation with General surgery. Patient was transition to Rocephin and metronidazole. He had a water-soluble enema that revealed partial obstruction and sigmoid colon stricture. GI was then consulted the patient they recommended a colonoscopy and a couple weeks after diverticulitis resolves. Patient was started on low-fiber diet he did well with this. Will discharge him on Cipro and Flagyl with follow-up with General surgery and GI. Time Spent with Patient Time attestation: Total time spent providing and/or coordinating discharge services: Exam Narrative: GENERAL: Comfortable, no acute distress HENMT: moist mucous membranes EYES: EOM intact b/l NECK: no lymphadenopathy RESPIRATORY: clear to auscultation, no increased respiratory effort CARDIO: Regular rate and rhythm GI: soft, nontender, bowel sounds present SKIN/EXTREMITIES: no rashes, no edema, no redness or tenderness NEURO: PROM intact, answers questions appropriately, A&O x4 DS: Data Data Completed and Pending Labs on day of discharge: Labs from last 24 hours 09/12/23 04:43 WBC 8.7 RBC 5.07 Hgb 15.7 Hct 46.4 MCV 91.5 MCH 31.0 MCHC 33.8 RDW 12.4 Plt Count 266 MPV 8.9 Sodium 138 Potassium 3.6 Chloride 105 Carbon Dioxide 27 Anion Gap 6 BUN 10 Creatinine 0.90 Estim Creat Clear Calc 85 Estimated GFR > 60 Glucose 88 Calcium 8.7 Discharge Plan Discharge Consulting providers: Anika Roberson; Da Escobedo Discharging Clinician: Juliane Post Patient Disposition: Home, Self-Care Activity: no preference Diet: low fiber Discharge Instructions: Please follow-up with General surgery in 2 weeks and then GI for a colonoscopy. Medication: Ciprofloxacin and flagyl for 8 more days. Diet: Low fiber diet for 2 weeks, then high fiber thereafter. Metamucil daily for fiber supplementation. Example of low-fiber foods: Cream of wheat and finely ground grits, white bread, pasta and rice, well cooked fruit without skin or seeds, cow's milk, yogurt, cheese, eggs, poultry, ground beef, tofu and peanut butter Example of high-fiber foods: Whole grains, dried fruit, fresh fruit
--- NOTE | 2023-09-12 15:29 | WPDGICN ---
Assessment and Plan Assessment and plan (1) Diverticulitis of sigmoid colon: Code(s): K57.32 - Diverticulitis of large intestine without perforation or abscess without bleeding Status: Acute Assessment and Plan: continue medical treatment with antibiotics will need follow-up with surgery colonoscopy in about 6 weeks until inflammation improves but may need surgery if continues with symptom (2) Stricture of sigmoid colon: Code(s): K56.699 - Other intestinal obstruction unspecified as to partial versus complete obstruction Status: Acute Assessment and Plan: probably from diverticulitis but will need colonoscopy, plan is to do it in about 6 weeks as outpatient (3) Partial obstruction of colon: Code(s): K56.600 - Partial intestinal obstruction, unspecified as to cause Status: Resolved (4) Lower abdominal pain: Code(s): R10.30 - Lower abdominal pain, unspecified Status: Acute Assessment and Plan: improved GI Consult Note Consult date/time: 09/12/23 15:29 Reason for consult: diverticulitis with sigmoid stricture HPI: Live Aguilar is a 58 year old male with history of stroke and diverticulitis who presented to the emergency department due to left lower quadrant and occasionally radiates into the suprapubic region which has been going on for few weeks, pain was intermittent described as sharp and shooting in nature. He also noted loose stools with nausea and last few days more pain. CT of the abdomen and pelvis showed chronic diverticulitis of the sigmoid colon with stricture and partial destruction. Labs were significant for a WBC count of 12.1, hemoglobin 16.5, sodium 141, potassium 4.0, BUN 8, creatinine 0.90, lactic acid 0.9, glucose 93, lipase 24. Urinalysis was unremarkable. He was given a dose of Zosyn and IV pain medications, evaluated by surgery, then had water-soluble enema that revealed partial obstruction and sigmoid colon stricture but has been passing bowel movements since and feeling better. Had negative cologuard but never colonoscopy (he could not tolerate prep in the past) Review of Systems Constitutional: Constitutional: Reports chills Eyes: Eyes: Denies blurry vision ENT: Reports Normal hearing present Cardiovascular: Cardiovascular: Denies chest pain Respiratory: Respiratory: Denies cough Gastrointestinal: Gastrointestinal: Reports abdominal pain and Reports nausea Genitourinary: Genitourinary: Denies dysuria Musculoskeletal: Musculoskeletal: Denies neck pain Integumentary/Breasts: Skin/Breast: Denies dry skin Neurologic: Denies Abnormal speech present Psychiatric: Psychiatric: Denies behavioral changes [facility] Past Medical History Medical History (Updated 09/12/23 @ 15:32 by Da Escobedo MD) Cerebrovascular accident Residual mild right-sided weakness and memory issues. Lower abdominal pain Tobacco abuse Surgical History Surgical History History of appendectomy History of open reduction and internal fixation (ORIF) procedure (1992) Repair left ankle fracture. History of umbilical hernia repair (03/2022) Laparoscopic umbilical hernia repair with mesh, da Mark assisted. Family History Family History Father Rheumatoid arthritis Lung cancer Acute myocardial infarction Social History Social History Social History: Surrogate medical decision maker: Matthew Penaloza (daughter) or Jennakenan Aguilar (mother). Code status: Full code. Smoking packs per day: 1 Smoking cigarettes per day: 20.0 Years smoked: 33 Smoking pack-years: 33.00 Smoking status: Current every day smoker Alcohol intake: never Alcohol use details: Has not had alcohol in years. Substance use: current Substance use type: marijuana Do You Feel Safe in your Home?
== END 2023-09-12 15:20 | disposition home or self-care (01) ==
PROVIDERS: Internal Medicine Critical Care Medicine; Physician Assistant; Admitting Provider Internal Medicine; PCP Internal Medicine; Visit Provider Internal Medicine
DX: K57.32 Diverticulitis of large intestine without perforation or abscess without bleeding (principal); K56.600 Partial intestinal obstruction, unspecified as to cause; I69.351 Hemiplegia and hemiparesis following cerebral infarction affecting right dominant side; F17.210 Nicotine dependence, cigarettes, uncomplicated; F12.90 Cannabis use, unspecified, uncomplicated; Z79.82 Long term (current) use of aspirin
CPT/HCPCS: 36415; 74270; 80048; 83735; 85027; 96365; 96366; 96367; 96372; A9270; G0378; G0379; J0696; J1650; J1836

== ENCOUNTER 2023-10-14 12:01 | Outpatient (CLI) | payer OTHER, SELFPAY ==
[2023-10-14 12:34] LABS: Basophils Percent Auto 0.9 % (0.0-1.0); Eosinophils Percent Auto 1.8 % (1.0-6.0); Hematocrit 47.7 % (40.0-54.0); Hemoglobin 16.1 g/dL (14.0-18.0); Immature Granulocyte Absolute 0.05 K/mm3 (0.00-0.00); Immature Granulocyte Percent A 0.5 % (0.0-0.0); Lymphocytes Absolute Auto 2.49 K/mm3 (1.10-4.50); Mean Corpuscular HGB Conc 33.8 g/dL (32-36); Mean Corpuscular Hemoglobin 30.2 pg (27.0-31.0); Mean Corpuscular Volume 89.5 fL (78.0-102.0); Mean Platelet Volume 8.3 fl (8.7-11.0); Monocytes Absolute Auto 0.44 K/mm3 (0.10-0.90); Monocytes Percent Auto 4.1 % (2.0-11.0); Neutrophils Absolute Auto 7.55 K/mm3 (1.70-7.20); Neutrophils Percent Auto 69.7 % (50.0-70.0); Platelet Count Result 301 K/mm3 (150-420); Red Blood Count 5.33 M/mm3 (4.70-6.10); Red Cell Distribution Width 11.8 % (11.6-14.4); White Blood Count 10.8 K/mm3 (4.8-10.8)
[2023-10-14 12:35] LABS: Appearance Urine Clear (Clear); Bilirubin Urine Negative (Negative); Blood Urine Negative (Negative); Color Urine Light Yellow (Yellow); Glucose Urine UA Negative (Negative); Ketones Urine Negative (Negative); Leukocyte Esterase Ur Trace LEU/UL (Negative); Nitrate Urine Negative (Negative); Protein Urine Negative (Negative); Urobilinogen Urine 0.2 mg/dL (0.2-1.0)
[2023-10-14 13:02] LABS: Add Urine Microscopic? YES; Bacteria Urine Trace /hpf; RBC Urine None seen /hpf (0-2); Squamous Epithelial Cell Urine Rare /hpf (Few); WBC Urine None seen /hpf (0-3)
[2023-10-14 13:40] LABS: Alanine Aminotransferase 32 U/L (16-63); Albumin Level 3.5 g/dL (3.4-5.0); Alkaline Phosphatase 77 U/L (46-116); Anion Gap 10 mmol/L (4-12); Aspartate Amino Transferase 16 U/L (15-37); Bilirubin,Total 0.3 mg/dL (0.00-1.00); Blood Urea Nitrogen 10 mg/dL (7-18); Calcium 8.6 mg/dL (8.5-10.1); Carbon Dioxide 28 mmol/L (21-32); Chloride 101 mmol/L (98-108); Cholesterol 150 mg/dL (0-200); Estimated Glomerular Filt Rate > 60; Glucose 82 mg/dL (70-99); HDL Direct 35 mg/dL (40-60); LDL Cholesterol Calculated 90 mg/dL (<130); Osmolality Calculated 286 mOsm/kg (285-295); Potassium 4.1 mmol/L (3.5-5.1); Prostate Specific Antigen 1.1 ng/mL (< OR = 4.0); Sodium 139 mmol/L (136-145); Triglycerides 123 mg/dL (0-150)
== END 2023-10-14 12:02 | disposition home or self-care (01) ==
LOC: CHSLAB 12:03
PROVIDERS: PCP Internal Medicine; Visit Provider Internal Medicine
DX: E78.5 Hyperlipidemia, unspecified (principal); R10.9 Unspecified abdominal pain; K57.92 Diverticulitis of intestine, part unspecified, without perforation or abscess without bleeding
CPT/HCPCS: 36415; 80053; 80061; 81001; 84153; 85025

== ENCOUNTER 2023-11-13 10:25 | Outpatient (CLI) | payer OTHER, SELFPAY ==
--- NOTE | 2023-11-13 11:00 | ECG_ITS ---
Test Date: 2023-11-13 11:05:32 Measurements Intervals [place] Rate: 76 P: 28 SD: 164 QRS: -7 QRSD: 105 T: -28 QT: 372 QTc: 419 Interpretive Statements SINUS RHYTHM INFERIOR INFARCT, AGE INDETERMINATE BASELINE ARTIFACT- I, II, III, AVR, AVL ABNORMAL ECG No previous ECG available for comparison Electronically Signed On 11-13-2023 11:13:32 CDT by Michael Kendrick D.O.
== END 2023-11-13 10:26 | disposition home or self-care (01) ==
LOC: ANHSURGERY 10:28
PROVIDERS: PCP Internal Medicine; Visit Provider Surgery
DX: Z01.818 Encounter for other preprocedural examination (principal); R94.31 Abnormal electrocardiogram [ECG] [EKG]; Z72.0 Tobacco use
CPT/HCPCS: 93005

== ENCOUNTER 2023-11-29 16:38 | Inpatient (IN) | payer OTHER, SELFPAY ==
--- NOTE | 2023-11-13 09:50 | PC.NURSE ---
Report to the Outpatient Waiting Room, entrance under the green pavilion located off [facility], at time _1000_ on date _[id number]_. Planned Procedure Time: _1200_. Time changes happen often and if your time is changed the preop area will call you the afternoon before. - You and your visitor will be asked to self-screen and do not enter if you have any COVID symptoms. - A mask is optional within the hospital at this time. Patients may have clear liquids (water, carbonated beverages, clear teas, apple juice) until 3 hours prior to surgery with a maximum of 20 ounces. - No food from midnight until time of surgery Take the following medications with a SIP of water the morning of surgery: ____None DO NOT STOP ANY OF YOUR OTHER PRESCRIPTION MEDICATIONS PRIOR TO SURGERY ?EXCEPT THE FOLLOWING Medications to discontinue per physician None Date to take last dose Follow instructions from office regarding bowel prep, antibiotics, and Ensure bundle. Please no make-up, nail [place] citizen, hairspray, perfume, deodorant, or body powder the day of surgery. No jewelry (including any body piercings) or valuables the day of surgery, leave them at home. Please take a shower or bath the night before, or the morning of, surgery with an antibacterial soap. Wear comfortable, loose fitting clothing. - Jewelry must be removed prior to entering the operating room. Rings and piercings that are not removed may be cut off. - The hospital will not accept responsibility for valuables. - Please leave all valuables, including medications, at home the day of surgery. If you are going home after surgery, a licensed van driver must drive you home. - NO public transportation without another adult if you receive anesthesia. - We recommend that an adult stay with you for 24 hours following discharge. - We also recommend that you do not drive, make important decision, drink alcoholic beverages, or take any drugs that were not prescribed by your health care provider for at least 24 hours after your discharge time. Follow any additional instructions given to you from your surgeon. If you or anyone in your household have experienced Covid symptoms in the past week, please notify your surgeon or the nurse liaison at the phone number below for possible testing. Telephone instructions given to _Live__and asked if any additional questions and then verbalized understanding. Patient advised to call surgeon office or pre surgery nurse liaison [phone] if any additional questions.
[2023-11-13 10:33] VITALS: BP 141/94; PULSE 77; RESP 18; TEMP 36.9; O2SAT 97; BMI 33.0
--- NOTE | 2023-11-13 11:14 | PC.NURSE ---
Discussed bowel prep, antibiotics and ensure bundle with patient, daughter and by phone his mother whom he lives with. Sounds like they have all the things they are supposed to have but clarity of how and when to use them is questionable. After calling Dr Hernandez's office I escorted patient and his daughter Matthew to Dr Hernandez's office for further instruction.
--- NOTE | 2023-11-28 14:11 | WPDANESEPPF ---
Anes - Initial Pre Proc Eval Procedure: Operation Date: 11/29/23 12:00 Proposed Procedures p Hand Assisted Laparoscopic Sigmoid Colectomy, Possible Open - Lloyd Hernandez DO Date/Time: 11/28/23 14:11 Surgeon: Lloyd Hernandez DO Pre Op Diagnosis: diverticulitis of large intestine Patient Data Age: 58 Gender: M Height: 1.66 m Weight: 91.5 kg Last Vital Signs Temp 98.5 F 11/13/23 10:33 Pulse 77 11/13/23 10:33 Resp 18 11/13/23 10:33 BP 141/94 H 11/13/23 10:33 Pulse Ox 97 11/13/23 10:33 O2 Del Method Room Air 11/13/23 10:33 Allergies Allergy/AdvReac Type Severity Reaction Status Date / Time No Known Allergies Allergy Unknown Verified 11/29/23 10:07 Home Medications Medication Instructions Recorded Confirmed Type aspirin 81 mg tablet,delayed 81 mg PO DAILY 02/15/22 11/29/23 History release ciprofloxacin HCl 500 mg tablet 500 mg PO Q12H 10 days #20 tabs 09/12/23 11/29/23 Rx metronidazole 500 mg tablet 500 mg PO Q8H 8 days #24 tabs 09/12/23 11/13/23 Rx ciprofloxacin HCl 500 mg tablet 500 mg PO .COMPLEX #1 tablet 10/18/23 11/13/23 Rx metronidazole 500 mg tablet 500 mg PO .COMPLEX #3 tabs 10/18/23 11/29/23 Rx Patient hx anesthesia problems: none Family hx anesthesia problems: none Results Review: All pre-operative results and documents have been reviewed as part of the pre-operative evaluation. [facility] Past Medical History Medical History Cerebrovascular accident Residual mild right-sided weakness and memory issues. Hyperlipidemia Lower abdominal pain Tobacco abuse Surgical History Surgical History History of appendectomy History of open reduction and internal fixation (ORIF) procedure (1992) Repair left ankle fracture. History of umbilical hernia repair (03/2022) Laparoscopic umbilical hernia repair with mesh, da Mark assisted. Family History Family History Father Rheumatoid arthritis Lung cancer Acute myocardial infarction Social History Social History Social History: Surrogate medical decision maker: Matthew Penaloza (daughter) or Jenna Aguilar (mother). Code status: Full code. Smoking packs per day: 0.5 Smoking cigarettes per day: 10.0 Years smoked: 39 Smoking pack-years: 19.50 Smoking status: Current every day smoker Tobacco type: cigarettes Alcohol intake: former Alcohol use details: Has not had alcohol in years. 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 Spiritual care concerns: No Anes - Eval Final PreProcedure Day of Procedure 11/28/23 14:11 Patient weight: obese Heart: regular rate and rhythm Lungs: clear to auscultation Airway: Mallampati scale class III Neurological: alert and oriented Last oral intake: >/= 8 hours ASA classification: III Emergent: no Anesthetic plan: proceed Anesthesia type and monitoring: general ETT and standard monitoring Results Review: All pre-operative results and documents have been reviewed as part of the pre-operative evaluation. Informed Consent: The patient's anesthetic plan and its attendant risks and benefits were discussed with the patient/family/POA. Questions were solicited and answers provided to the satisfaction of the patient/family/POA.
[2023-11-29] VITALS (14 sets, daily range): BP systolic 104–137; BP diastolic 65–87; PULSE 85–98; RESP 10–20; TEMP 36.4–37.6; O2SAT 92–98
[2023-11-29] MEDS: LACTATED RINGERS 1,000 ML 30 ML IV CONT ×2 (10:50→16:20)
[2023-11-29] MEDS: ACETAMINOPHEN 500 MG TABLET 1000 MG PO (10:57)
[2023-11-29] MEDS: KETOROLAC 15 MG/ML VIAL (*BKC) IV PUSH (10:59)
--- NOTE | 2023-11-29 11:25 | PM.IMHP ---
H&P: HPI History of Present Illness Date/Time: 11/29/23 11:25 Chief Complaint: Recurrent diverticulitis, sigmoid stricture Narrative: 58 yo man presents for sigmoid colectomy. He has had multiple episodes of diverticulitis and was found to have a sigmoid stricture. He reports no changes since last seen in office. Review of Systems Review of Systems: All systems reviewed & are unremarkable except as noted in HPI and below Constitutional: Constitutional: Denies chills, Denies fever(s), Denies headache(s) and Denies weight loss Eyes: Eyes: Denies change in vision ENT: Denies dizziness, Denies headache(s), Denies neck mass and Denies throat swelling Cardiovascular: Cardiovascular: Denies chest pain, Denies lightheadedness and Denies dyspnea Respiratory: Respiratory: Denies cough, Denies dyspnea and Denies wheezing Gastrointestinal: Gastrointestinal: Denies abdominal pain, Denies change in bowel habits, Denies nausea and Denies vomiting Genitourinary: Genitourinary: Denies hematuria and Denies dysuria Musculoskeletal: Musculoskeletal: Reports as per HPI Integumentary/Breasts: Skin/Breast: Reports as per HPI Neurologic: Denies dizziness and Denies headache(s) Allergic/Immunologic: Allergic/Immunologic: Denies throat swelling and Denies wheezing [facility] Past Medical History Medical History Cerebrovascular accident Residual mild right-sided weakness and memory issues. Hyperlipidemia Lower abdominal pain Tobacco abuse Surgical History Surgical History History of appendectomy History of open reduction and internal fixation (ORIF) procedure (1992) Repair left ankle fracture. History of umbilical hernia repair (03/2022) Laparoscopic umbilical hernia repair with mesh, da Mark assisted. Family History Family History Father Rheumatoid arthritis Lung cancer Acute myocardial infarction Social History Social History Social History: Surrogate medical decision maker: Matthew Garciaell (daughter) or Jenna Aguilar (mother). Code status: Full code. Smoking packs per day: 0.5 Smoking cigarettes per day: 10.0 Years smoked: 39 Smoking pack-years: 19.50 Smoking status: Current every day smoker Tobacco type: cigarettes Alcohol intake: former Alcohol use details: Has not had alcohol in years. 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 Spiritual care concerns: No Meds Home Medications and Allergies Home Medications Medication Instructions Recorded Confirmed Type aspirin 81 mg tablet,delayed 81 mg PO DAILY 02/15/22 11/29/23 History release ciprofloxacin HCl 500 mg tablet 500 mg PO Q12H 10 days #20 tabs 09/12/23 11/29/23 Rx metronidazole 500 mg tablet 500 mg PO Q8H 8 days #24 tabs 09/12/23 11/13/23 Rx ciprofloxacin HCl 500 mg tablet 500 mg PO .COMPLEX #1 tablet 10/18/23 11/13/23 Rx metronidazole 500 mg tablet 500 mg PO .COMPLEX #3 tabs 10/18/23 11/29/23 Rx Allergies Allergy/AdvReac Type Severity Reaction Status Date / Time No Known Allergies Allergy Unknown Verified 11/29/23 10:07 Vital Signs Vital Signs - 24 hr 11/29/23 10:13 Temperature 36.5 C Pulse Rate 94 Respiratory Rate 20 Blood Pressure 125/87 Pulse Oximetry 96 Oxygen Delivery Room Air Exam Const: General:
--- NOTE | 2023-11-29 11:27 | WPDHPUPDATE1 ---
History and Physical Update Update Date/Time: 11/29/23 11:27 History and Physical has been reviewed, including an updated exam of the patient. There are NO changes in the patient's condition. Risks, benefits, and alternatives have been discussed and questions answered. Patient agrees to proceed with procedure.
[2023-11-29] MEDS: metroNIDAZOLE 500 MG/ISO 100ML 500 MG/100 ML BAG 100 MG IVPB ×2 (11:32→19:56)
[2023-11-29] MEDS: ceFAZolin 2 GM/D5W 50 ML 2 GM/50 ML BAG IVPB (11:32)
[2023-11-29] MEDS: BUPIVACAINE/EPINEPHRINE 0.5% 50 ML VIAL 30 ML INFILTRATE (12:18)
--- NOTE | 2023-11-29 15:37 | W.PM.PROC2 ---
Procedure Note - Detailed Date of Procedure 11/29/23 Pre-op Diagnosis diverticulitis of large intestine, sigmoid stricture Post-op Diagnosis Same Procedure Performed 1. Attempted hand assisted laparoscopic sigmoid colectomy 2. Open sigmoid colectomy with colorectal anastomosis 3. Takedown/mobilization of splenic flexure Surgeon Lloyd Hernandez DO Compensation Business Partner Brian Padilla MD Anesthesia MAC and Local (0.5% bupivacaine with) Indications This is a 58-year-old man who presented with sigmoid diverticulitis and a sigmoid stricture. He had been complaining of some lower abdominal pain for many months and eventually presented to the emergency department in September with left lower quadrant pain was found evidence of diverticulitis with a sigmoid stricture. He was not completely obstructed and did feel better after bowel rest and antibiotics. He was able to be discharged home followed up in the office for further discussions. Decision was made to proceed with hand assisted laparoscopic sigmoid colectomy, possible open. Findings Attempted hand assisted laparoscopic sigmoid colectomy was performed. There were many adhesions to the sigmoid colon in the pelvis and right lower quadrant. There was a loop of ileum that was tethered to the area inflammation in the sigmoid colon. The inflammatory reaction was very severe in this location and the tissue was very hard and difficult to dissect. After attempting hand assisted laparoscopic blunt dissection and dissection with electrocautery decision was made to convert to open. I then was able to continue taking down the small intestine from the sigmoid colon and mobilize the sigmoid colon from the pelvic adhesions. I did not identify any bladder injuries or any injuries to any the other surrounding structures. The area of the terminal ileum that was tender to the sigmoid appeared healthy and viable and there were no signs of bowel injuries. I then was able to mobilize the sigmoid colon and attempted an end-to-end stapled anastomosis, the descending colon appeared to dilated to adequately perform a pursestring suture around the anvil. I then performed an end to side stapled anastomosis. The test was performed and there was no evidence of anastomotic leak. Dr. Padilla assisted with the open portion of the procedure including the resection and anastomosis. He advanced the stapler up the rectum and the stapler and then performed the rigid proctoscopy for leak test. Description of Procedure Procedure as well as risks, benefits, and alternatives were discussed with the patient. Written consent was obtained and placed in chart prior to procedure. Patient was brought back to surgical suite. He was placed supine on operating table. Time-out was done to confirm patient and procedure. He was then intubated by the anesthesia department. He was then repositioned into dorsal lithotomy position in stirrups. His rectum was irrigated with Betadine and the perirectal area was prepped and draped in sterile fashion using Betadine prep. The abdomen was prepped and draped in sterile fashion using chlorhexidine prep. An 8 cm vertical incision was made around the umbilicus using a 15 blade scalpel. Electrocautery was used for hemostasis and for dissection through the subcutaneous tissue. The linea alba was encountered and incised with electrocautery. There was some mesh from his prior repair that was incorporated into the linea alba and this was transected as well with electrocautery. The peritoneum was then entered using electrocautery. Once inside the abdominal cavity then inspected the abdomen through the small incision. I then placed a wound protector and then advance a 5 mm port through the GelPort and then applied the GelPort. Carbon dioxide insufflation was used creating pneumoperitoneum. The abdomen was then inspected with laparoscopic. The patient was then placed steep Trendelenburg position and rotated to the right. A 12 mm incision
[2023-11-29] MEDS: ONDANSETRON INJ 4 MG/2 ML VIAL IV PUSH (16:25)
[2023-11-29] MEDS: SCOPOLAMINE 1 MG PATCH 1 PATCH TRANSDERM (16:40)
[2023-11-29] MEDS: diphenhydrAMINE HCl INJ 50 MG/ML VIAL 25 MG IV PUSH (16:40)
--- NOTE | 2023-11-29 17:19 | PC.NURSE ---
This patient, Live Aguilar, was admitted to Medical Room 241-. Patient/family oriented to hospital policies and general routines including ID bracelet, bed and alarms, visiting hours, pain management, procedures, bathroom and other care routines, personal items, smoking policy, room service/diet, and visiting hours. Information on how to activate the Rapid Response Team has been discussed. Patient/Family are encouraged to report perceived risks to care and to ask questions if they do not understand what they are told or what they should do.
[2023-11-29] MEDS: LACTATED RINGERS 1,000 ML 100 ML IV CONT (17:48)
[2023-11-29] MEDS: IBUPROFEN IV 800 MG/200 ML 800 MG/200 ML BAG 400 MG IVPB (17:49)
[2023-11-29] MEDS: ceFAZolin 1 GM/NS 50 ML 1 GM/50 ML BAG IVPB (18:30)
[2023-11-29] MEDS: ACETAMINOPHEN 325 MG TABLET 650 MG PO (23:19)
[2023-11-29] MEDS: oxyCODONE HCL (*CRX) 5 MG TAB IR PO (23:19)
[2023-11-30] VITALS (8 sets, daily range): BP systolic 118–128; BP diastolic 62–78; PULSE 90–100; RESP 17–20; TEMP 36.6–37.1; O2SAT 91–96
[2023-11-30] MEDS: ceFAZolin 1 GM/NS 50 ML 1 GM/50 ML BAG IVPB (03:23)
[2023-11-30] MEDS: metroNIDAZOLE 500 MG/ISO 100ML 500 MG/100 ML BAG 100 MG IVPB (03:23)
[2023-11-30 05:56] LABS: Hematocrit 46.3 % (42.0-52.0); Hemoglobin 15.5 g/dL (14.0-18.0); Mean Corpuscular HGB Conc 33.5 g/dl (32-36); Mean Corpuscular Hemoglobin 30.5 pg (26-34); Mean Corpuscular Volume 91.1 fl (80-100); Mean Platelet Volume 8.8 fl (7.4-10.4); Platelet Count Result 283 k/mm3 (150-375); Red Blood Count 5.08 M/mm3 (4.6-6.20); Red Cell Distribution Width 13.3 % (11.5-14.5); White Blood Count 17.8 K/mm3 (4.5-10.0)
[2023-11-30 06:09] LABS: Anion Gap 10 mmol/L (4-12); Blood Urea Nitrogen 9 mg/dL (9-20); Calcium 8.2 mg/dL (8.4-10.2); Carbon Dioxide 25 mmol/L (22-30); Chloride 100 mmol/L (98-107); Estimated CRCL calculation 84 ml/min; Estimated Glomerular Filt Rate > 60; Glucose 127 mg/dL (65-110); Potassium 3.5 mmol/L (3.4-5.0); Sodium 135 mmol/L (137-145)
[2023-11-30] MEDS: ACETAMINOPHEN 325 MG TABLET 650 MG PO ×3 (06:55→17:25)
[2023-11-30] MEDS: oxyCODONE HCL (*CRX) 5 MG TAB IR PO ×2 (06:55→19:38)
[2023-11-30] MEDS: LACTATED RINGERS 1,000 ML 100 ML IV CONT ×2 (06:56→19:45)
[2023-11-30] MEDS: ENOXAPARIN 40 MG/0.4 ML SYRINGE SUB-Q (08:49)
[2023-11-30] MEDS: ASPIRIN 81 MG ENTERIC TABLET PO (08:50)
--- NOTE | 2023-11-30 11:31 | WPDPN ---
Progress Note: A&P Assessment and Plan (1) Diverticulitis of sigmoid colon: Code(s): K57.32 - Diverticulitis of large intestine without perforation or abscess without bleeding Status: Acute Assessment and Plan: Postop day 1 after hand assisted laparoscopic sigmoid colectomy with conversion to open laparotomy and sigmoid colectomy with anastomosis. He is doing as expected for postop day 1. Status. Not passing flatus yet or having any bowel movements. Go ahead remove his Peters catheter today. We will make sure he gets up out of bed since of a chair. DVT prophylaxis with Lovenox. Pulmonary toilet and it deep breathing with incentive spirometer. We will go ahead and give him 1 dose of IV potassium chloride as a bolus as his potassium is 3.5 today. Continue supportive management today. We expect his postoperative ileus the last few days. Subjective Date/time seen: 11/30/23 11:31 Interval history: Patient is doing okay today. No flatus or bowel movement yet. he still has a Peters catheter in place today. No nausea or vomiting. Mild pain around his incision. Exam GI: Other: Abdomen is soft and mildly distended. Moderately obese. Midline incision is dressed and the dressing is dry. Quiet bowel sounds. Objective Data Vital Signs Vital Signs: Vital Signs - 24 hr 11/29/23 15:30 11/29/23 15:45 11/29/23 16:00 Temperature 37.6 C Pulse Rate 97 95 98 Respiratory Rate 13 14 14 Blood Pressure 119/75 113/74 122/80 Pulse Oximetry 97 98 95 Oxygen Delivery Simple Face Mask Simple Face Mask Room Air Oxygen Flow Rate 10 10 11/29/23 16:15 11/29/23 16:30 11/29/23 16:45 Temperature Pulse Rate 92 90 85 Respiratory Rate 10 L 14 12 Blood Pressure 122/79 113/78 115/78 Pulse Oximetry 93 92 96 Oxygen Delivery Autopap Room Air Nasal Cannula Oxygen Flow Rate 2 11/29/23 16:53 11/29/23 17:23 11/29/23 18:34 Temperature 37.0 C 36.7 C 36.4 C Pulse Rate 96 95 94 Respiratory Rate 12 16 16 Blood Pressure 104/65 107/66 121/73 Pulse Oximetry 93 94 96 Oxygen Delivery Oxygen Flow Rate 11/29/23 18:00 11/29/23 19:45 11/29/23 22:21 Temperature 36.7 C 37.0 C Pulse Rate 94 97 Respiratory Rate 20 18 Blood Pressure 131/71 137/71 Pulse Oximetry 96 96 95 Oxygen Delivery Nasal Cannula Oxygen Flow Rate 2 11/29/23 20:00 11/30/23 02:20 11/30/23 06:19 Temperature 37.1 C 37.0 C Pulse Rate 100 95 Respiratory Rate 20 18 Blood Pressure 120/73 118/66 Pulse Oximetry 95 92 95 Oxygen Delivery Room Air Oxygen Flow Rate 11/30/23 08:40 Temperature Pulse Rate Respiratory Rate Blood Pressure Pulse Oximetry Oxygen Delivery Room Air Oxygen Flow Rate Intake/Output Intake/Output: Intake & Output 11/27/23 11/28/23 11/29/23 11/30/23 23:59 23:59 23:59 23:59 Intake Total 900 1390 Output Total 1100 Balance 900 290 Meds/Results Medications: Active Medications Generic Name Dose Route Start Last Admin Trade Name Freq PRN Reason Stop Dose Admin Acetaminophen 650 mg 11/29/23 18:00 11/30/23 06:55 Acetaminophen 325 Mg Tablet PO 650 mg Q6HR ANNETTE Administration Alvimopan 12 mg 11/30/23 21:00 Alvimopan 12 Mg Capsule PO 12/07/23 20:59 Q12HR ANNETTE Aspirin 81 mg 11/30/23 09:00 11/30/23 08:50 Aspirin 81 Mg Enteric Tablet PO 81 mg DAILY ANNETTE Administration Enoxaparin Sodium 40 mg 11/30/23 09:00 11/30/23 08:49 Enoxaparin 40 Mg/0.4 Ml Syringe SUB-Q 40 mg DAILY ANNETTE Administration Hydromorphone HCl 0.5 mg 11/29/23 16:38 Hydromorphone Hcl Inj (*Crx) 1 Mg/Ml Syr IV PUSH Q2H PRN Breakthrough Pain Rated 4-6 or NPO Hydromorphone HCl 1 mg 11/29/23 16:38 Hydromorphone Hcl Inj (*Crx) 1 Mg/Ml Syr IV PUSH Q2H PRN Breakthrough Pain Rated 7-10 or NPO Ibuprofen 800 mg in 200 mls @ 400 mls/hr 11/29/23 16:38 11/29/23 18:19 Caldolor 800 Mg/200 Ml IVPB Infused Q6H PRN Infusion Breakthrough Pa
[2023-11-30] MEDS: oxyCODONE HCL (*CRX) 2.5 MG TAB IR PO (12:05)
[2023-11-30] MEDS: POTASSIUM CHLORIDE INJ 40 MEQ in SODIUM CHLORIDE 0.9% IV 500 ML 130 MEQ IVPB (13:09)
[2023-11-30] MEDS: ONDANSETRON INJ 4 MG/2 ML VIAL IV PUSH (17:26)
[2023-11-30] MEDS: ALVIMOPAN 12 MG CAPSULE PO (19:37)
[2023-12-01] MEDS: ACETAMINOPHEN 325 MG TABLET 650 MG PO ×4 (00:02→17:34)
[2023-12-01] MEDS: oxyCODONE HCL (*CRX) 5 MG TAB IR PO (00:02)
[2023-12-01 03:41] VITALS: BP 140/75; PULSE 95; RESP 18; TEMP 36.5; O2SAT 93
[2023-12-01 05:32] LABS: Basophils Absolute Auto 0.1 K/mm3 (0.0-0.1); Basophils Percent Auto 0.4 % (0.2-1.2); Eosinophils Absolute Auto 0.1 K/mm3 (0-0.3); Eosinophils Percent Auto 0.3 % (0-4.4); Hematocrit 41.2 % (42.0-52.0); Hemoglobin 13.6 g/dL (14.0-18.0); Immature Granulocyte Absolute 0.09 K/mm3 (0.00-0.031); Immature Granulocyte Percent A 0.6 % (0-0.5); Mean Corpuscular Hemoglobin 30.3 pg (26-34); Mean Corpuscular Volume 91.8 fl (80-100); Mean Platelet Volume 8.8 fl (7.4-10.4); Monocytes Absolute Auto 0.6 K/mm3 (0.1-0.6); Neutrophils Absolute Auto 12.6 K/mm3 (1.3-6.7); Neutrophils Percent Auto 84.7 % (45.5-73.1); Platelet Count Result 226 k/mm3 (150-375); Red Blood Count 4.49 M/mm3 (4.6-6.20); Red Cell Distribution Width 13.6 % (11.5-14.5); White Blood Count 14.9 K/mm3 (4.5-10.0)
[2023-12-01 05:42] LABS: Anion Gap 5 mmol/L (4-12); Blood Urea Nitrogen 11 mg/dL (9-20); Calcium 8.2 mg/dL (8.4-10.2); Carbon Dioxide 27 mmol/L (22-30); Chloride 103 mmol/L (98-107); Estimated CRCL calculation 94 ml/min; Estimated Glomerular Filt Rate > 60; Glucose 106 mg/dL (65-110); Potassium 4.2 mmol/L (3.4-5.0); Sodium 135 mmol/L (137-145)
[2023-12-01] MEDS: LACTATED RINGERS 1,000 ML 100 ML IV CONT ×2 (06:35→18:19)
[2023-12-01 08:00] VITALS: BP 138/70; PULSE 96; RESP 17; TEMP 36.4; O2SAT 94
[2023-12-01] MEDS: ASPIRIN 81 MG ENTERIC TABLET PO (09:15)
[2023-12-01] MEDS: ALVIMOPAN 12 MG CAPSULE PO ×2 (09:15→21:14)
[2023-12-01] MEDS: ENOXAPARIN 40 MG/0.4 ML SYRINGE SUB-Q (09:16)
--- NOTE | 2023-12-01 11:19 | WPDPN ---
Progress Note: A&P Assessment and Plan (1) Diverticulitis of sigmoid colon: Code(s): K57.32 - Diverticulitis of large intestine without perforation or abscess without bleeding Status: Acute Assessment and Plan: Postop day 2, attempted hand assisted laparoscopic sigmoid resection converted to open sigmoid resection with end-to-end stapled anastomosis. His postoperative ileus seems to be improving and resolving. He is passing flatus today. We will go ahead and give him some clear liquids. Continue to ambulate. Supportive management. He does have some pain medications ordered for him which he can use for his back and neck pain. Subjective Date/time seen: 12/01/23 11:19 Interval history: Patient's biggest complaint today is having some back and shoulder pain. No nausea. States he is having lots of flatus. No bowel movement yet. Up walking in the hallways into the bathroom. Exam GI: Other: Abdomen is soft and nondistended. Midline incision is healing well without redness or drainage. Some old blood on the dressing but no new bleeding. Active bowel sounds. Objective Data Vital Signs Vital Signs: Vital Signs - 24 hr 11/30/23 14:23 11/30/23 18:23 11/30/23 20:00 Temperature 36.9 C 36.6 C 36.8 C Pulse Rate 92 94 91 Respiratory Rate 18 19 17 Blood Pressure 122/64 128/62 120/75 Pulse Oximetry 96 96 94 Oxygen Delivery 11/30/23 20:00 11/30/23 23:33 12/01/23 03:41 Temperature 36.7 C 36.5 C Pulse Rate 98 95 Respiratory Rate 17 18 Blood Pressure 128/78 140/75 Pulse Oximetry 91 93 Oxygen Delivery Room Air 11/30/23 21:22 12/01/23 08:00 Temperature 36.4 C Pulse Rate 96 Respiratory Rate 17 Blood Pressure 138/70 Pulse Oximetry 93 94 Oxygen Delivery Room Air Intake/Output Intake/Output: Intake & Output 11/28/23 11/29/23 11/30/23 12/01/23 23:59 23:59 23:59 23:59 Intake Total 900 2910 1000 Output Total 3000 Balance 900 -90 1000 Meds/Results Medications: Active Medications Generic Name Dose Route Start Last Admin Trade Name Freq PRN Reason Stop Dose Admin Acetaminophen 650 mg 11/29/23 18:00 12/01/23 06:35 Acetaminophen 325 Mg Tablet PO 650 mg Q6HR ANNETTE Administration Alvimopan 12 mg 11/30/23 21:00 12/01/23 09:15 Alvimopan 12 Mg Capsule PO 12/07/23 20:59 12 mg Q12HR ANNETTE Administration Aspirin 81 mg 11/30/23 09:00 12/01/23 09:15 Aspirin 81 Mg Enteric Tablet PO 81 mg DAILY ANNETTE Administration Enoxaparin Sodium 40 mg 11/30/23 09:00 12/01/23 09:16 Enoxaparin 40 Mg/0.4 Ml Syringe SUB-Q 40 mg DAILY ANNETTE Administration Hydromorphone HCl 0.5 mg 11/29/23 16:38 Hydromorphone Hcl Inj (*Crx) 1 Mg/Ml Syr IV PUSH Q2H PRN Breakthrough Pain Rated 4-6 or NPO Hydromorphone HCl 1 mg 11/29/23 16:38 Hydromorphone Hcl Inj (*Crx) 1 Mg/Ml Syr IV PUSH Q2H PRN Breakthrough Pain Rated 7-10 or NPO Ibuprofen 800 mg in 200 mls @ 400 mls/hr 11/29/23 16:38 11/29/23 18:19 Caldolor 800 Mg/200 Ml IVPB Infused Q6H PRN Infusion Breakthrough Pain Rated 1-3 or NPO Lactated Ringer's 1,000 mls @ 100 mls/hr 11/29/23 16:38 12/01/23 06:35 Lr - Lactated Ringers Iv IV CONT 100 mls/hr .Q10H ANNETTE Administration Naloxone HCl 0.1 mg 11/29/23 16:38 Naloxone Hcl 0.4 Mg/Ml Vial IV PUSH Q2M PRN Opiate Reversal Ondansetron HCl 4 mg 11/29/23 16:38 11/30/23 17:26 Ondansetron Inj 4 Mg/2 Ml Vial IV PUSH 4 mg Q4H PRN Administration Nausea And Vomiting Oxycodone HCl 2.5 mg 11/29/23 16:38 11/30/23 12:05 Oxycodone Hcl (*Crx) 2.5 Mg Tab Ir PO 2.5 mg Q4H PRN Administration Pain Rated 4-6 Oxycodone HCl 5 mg 11/29/23 16:38 12/01/23 00:02 Oxycodone Hcl (*Crx) 5 Mg Tab Ir PO 5 mg Q4H PRN Administration Pain Rated 7-10 Labs Labs: Laboratory Results - last 24 hr 12/01/23 04:58 WBC 14.9 H RBC 4.49 L Hgb 13.6 L Hct 41.2 L MCV 91.8
[2023-12-01 12:00] VITALS: BP 138/70; PULSE 95; RESP 17; TEMP 36.5; O2SAT 94
[2023-12-01 16:00] VITALS: BP 130/68; PULSE 88; RESP 18; TEMP 36.4; O2SAT 94
[2023-12-01] MEDS: ONDANSETRON INJ 4 MG/2 ML VIAL IV PUSH (17:34)
[2023-12-01 20:00] VITALS: BP 168/89; PULSE 104; RESP 20; TEMP 36.8; O2SAT 95
[2023-12-02] VITALS: BP 128/78; PULSE 100; RESP 20; TEMP 36.8; O2SAT 95
[2023-12-02 04:00] VITALS: BP 142/86; PULSE 97; RESP 20; TEMP 36.6; O2SAT 93
[2023-12-02] MEDS: LACTATED RINGERS 1,000 ML 100 ML IV CONT (04:40)
[2023-12-02] MEDS: oxyCODONE HCL (*CRX) 5 MG TAB IR PO (04:40)
[2023-12-02 04:52] LABS: Hematocrit 43.4 % (42.0-52.0); Hemoglobin 14.4 g/dL (14.0-18.0); Mean Corpuscular HGB Conc 33.2 g/dl (32-36); Mean Corpuscular Hemoglobin 30.7 pg (26-34); Mean Corpuscular Volume 92.5 fl (80-100); Mean Platelet Volume 8.8 fl (7.4-10.4); Platelet Count Result 252 k/mm3 (150-375); Red Blood Count 4.69 M/mm3 (4.6-6.20); Red Cell Distribution Width 13.5 % (11.5-14.5); White Blood Count 14.7 K/mm3 (4.5-10.0)
[2023-12-02 05:04] LABS: Anion Gap 8 mmol/L (4-12); Blood Urea Nitrogen 11 mg/dL (9-20); Carbon Dioxide 25 mmol/L (22-30); Chloride 102 mmol/L (98-107); Estimated CRCL calculation 106 ml/min; Estimated Glomerular Filt Rate > 60; Glucose 93 mg/dL (65-110); Potassium 3.8 mmol/L (3.4-5.0); Sodium 135 mmol/L (137-145)
[2023-12-02] MEDS: ACETAMINOPHEN 325 MG TABLET 650 MG PO ×3 (06:52→18:01)
[2023-12-02 08:00] VITALS: BP 138/81; PULSE 86; RESP 18; TEMP 36.7; O2SAT 96
[2023-12-02] MEDS: ALVIMOPAN 12 MG CAPSULE PO ×2 (08:54→21:17)
[2023-12-02] MEDS: ASPIRIN 81 MG ENTERIC TABLET PO (08:54)
[2023-12-02] MEDS: ENOXAPARIN 40 MG/0.4 ML SYRINGE SUB-Q (08:55)
--- NOTE | 2023-12-02 10:04 | PM.PNGS ---
Progress Note: A&P Assessment and Plan (1) Diverticulitis of sigmoid colon: Code(s): K57.32 - Diverticulitis of large intestine without perforation or abscess without bleeding Status: Acute Assessment and Plan: POD#3 and doing well. Bowel function has returned. Will advance to full liquids and stop IV fluids. Increase activity, ambulate in the halls. WBC still at 14,700 today. He is afebrile and clinically progressing well. Will repeat labs tomorrow. Pathology pending Plan I have discussed the patient's case and plan of care with Dr. Hernandez. Subjective Subjective Date/Time Seen: 12/02/23 10:04 Patient reports: tolerating liquids well, voiding w/o difficulty, flatus, bowel movement and afebrile Interval history: Patient seen this morning lying in bed. He reports feeling tired but has not had issues sleeping. He is tolerating clear liquids. Yesterday, he had some nausea and bloating but this has resolved and he is feeling better this morning. He has had multiple loose BMs overnight. Mild incisional pain is well controlled. He has gotten up to chair and ambulated in the room, which he tolerated well. No other complaints at this time. Exam Const: General: comfortable and no acute distress GI: Inspection: non-distended and incision (incisions dry and intact, no erythema) GI Palp: Yes Soft to palpation, Yes Tenderness to palpation present (GI) (incisional) and No Guarding due to palpation present (GI) Auscultation: normal bowel sounds Neuro: General: moves all extremities and no focal motor deficits Extrem: General: no calf tenderness and no edema Psych: Mental Status: mental status grossly normal Insight: Good insight present (Psych) Objective Data Vital Signs Vital Signs: Vital Signs - 24 hr 12/01/23 12:00 12/01/23 16:00 12/01/23 20:00 Temperature 97.7 F 97.6 F Pulse Rate 95 88 Respiratory Rate 17 18 Blood Pressure 138/70 130/68 Pulse Oximetry 94 94 Oxygen Delivery Room Air 12/01/23 20:00 12/02/23 00:00 12/02/23 04:00 Temperature 98.3 F 98.3 F 97.8 F Pulse Rate 104 H 100 97 Respiratory Rate 20 20 20 Blood Pressure 168/89 H 128/78 142/86 H Pulse Oximetry 95 95 93 Oxygen Delivery 07/29/24 08:55 12/02/23 08:00 Temperature 98.1 F Pulse Rate 86 Respiratory Rate 18 Blood Pressure 138/81 Pulse Oximetry 96 Oxygen Delivery Room Air Intake/Output Intake/Output: Intake & Output 11/29/23 11/30/23 12/01/23 12/02/23 23:59 23:59 23:59 23:59 Intake Total 900 2910 2222 1650 Output Total 3000 150 1 Balance 900 -90 2072 1649 Meds/Results Medications: Active Medications Generic Name Dose Route Start Last Admin Trade Name Freq PRN Reason Stop Dose Admin Acetaminophen 650 mg 11/29/23 18:00 12/02/23 06:52 Acetaminophen 325 Mg Tablet PO 650 mg Q6HR ANNETTE Administration Alvimopan 12 mg 11/30/23 21:00 12/02/23 08:54 Alvimopan 12 Mg Capsule PO 12/07/23 20:59 12 mg Q12HR ANNETTE Administration Aspirin 81 mg 11/30/23 09:00 12/02/23 08:54 Aspirin 81 Mg Enteric Tablet PO 81 mg DAILY ANNETTE Administration Enoxaparin Sodium 40 mg 11/30/23 09:00 12/02/23 08:55 Enoxaparin 40 Mg/0.4 Ml Syringe SUB-Q 40 mg DAILY ANNETTE Administration Hydromorphone HCl 0.5 mg 11/29/23 16:38 Hydromorphone Hcl Inj (*Crx) 1 Mg/Ml Syr IV PUSH Q2H PRN Breakthrough Pain Rated 4-6 or NPO Hydromorphone HCl 1 mg 11/29/23 16:38 Hydromorphone Hcl Inj (*Crx) 1 Mg/Ml Syr IV PUSH Q2H PRN Breakthrough Pain Rated 7-10 or NPO Ibuprofen 800 mg in 200 mls @ 400 mls/hr 11/29/23 16:38 11/29/23 18:19 Caldolor 800 Mg/200 Ml IVPB Infused Q6H PRN Infusion Breakthrough Pain Rated 1-3 or NPO Lactated Ringer's 1,000 mls @ 60 mls/hr 11/29/23 16:38 12/02/23 04:40 Lr - Lactated Ringers Iv IV CONT 100 mls/hr .[id number] ANNETTE Administration Naloxone HCl 0.1 mg 11/29/23 16:38 Naloxone Hcl 0.4 Mg/Ml Vial IV PUSH Q2M
[2023-12-02 12:00] VITALS: BP 153/87; PULSE 95; RESP 18; TEMP 36.8; O2SAT 93
[2023-12-02 16:00] VITALS: BP 150/84; PULSE 86; RESP 18; TEMP 36.7; O2SAT 96
[2023-12-02 19:44] VITALS: BP 149/89; PULSE 80; RESP 20; TEMP 36.5; O2SAT 98
[2023-12-03 04:13] VITALS: BP 141/81; PULSE 89; RESP 20; TEMP 36.7; O2SAT 94
[2023-12-03 04:14] VITALS: BP 141/81; PULSE 89; RESP 20; TEMP 36.7; O2SAT 94
[2023-12-03 05:25] LABS: Hematocrit 40.9 % (42.0-52.0); Hemoglobin 13.7 g/dL (14.0-18.0); Mean Corpuscular HGB Conc 33.5 g/dl (32-36); Mean Corpuscular Hemoglobin 30.5 pg (26-34); Mean Corpuscular Volume 91.1 fl (80-100); Mean Platelet Volume 8.8 fl (7.4-10.4); Platelet Count Result 275 k/mm3 (150-375); Red Blood Count 4.49 M/mm3 (4.6-6.20); Red Cell Distribution Width 13.2 % (11.5-14.5); White Blood Count 11.4 K/mm3 (4.5-10.0)
[2023-12-03 05:34] LABS: Anion Gap 10 mmol/L (4-12); Blood Urea Nitrogen 9 mg/dL (9-20); Carbon Dioxide 25 mmol/L (22-30); Chloride 99 mmol/L (98-107); Estimated CRCL calculation 105 ml/min; Estimated Glomerular Filt Rate > 60; Glucose 93 mg/dL (65-110); Potassium 3.5 mmol/L (3.4-5.0); Sodium 134 mmol/L (137-145)
[2023-12-03] MEDS: ACETAMINOPHEN 325 MG TABLET 650 MG PO ×3 (06:26→18:10)
[2023-12-03] MEDS: oxyCODONE HCL (*CRX) 5 MG TAB IR PO (06:27)
[2023-12-03] MEDS: ENOXAPARIN 40 MG/0.4 ML SYRINGE SUB-Q (08:46)
[2023-12-03] MEDS: ASPIRIN 81 MG ENTERIC TABLET PO (08:46)
[2023-12-03] MEDS: POTASSIUM CHLORIDE 20 MEQ ER TABLET PO (08:46)
[2023-12-03] MEDS: ALVIMOPAN 12 MG CAPSULE PO ×2 (08:46→20:36)
[2023-12-03 14:00] VITALS: BP 126/85; PULSE 95; RESP 19; TEMP 36.7; O2SAT 95
--- NOTE | 2023-12-03 14:49 | PM.PNGS ---
Progress Note: A&P Assessment and Plan (1) Diverticulitis of sigmoid colon: Code(s): K57.32 - Diverticulitis of large intestine without perforation or abscess without bleeding Status: Acute Assessment and Plan: POD#4 and slowly improving. Advance to low fiber diet Increase activity, ambulate in the halls. Hopefully discharge home tomorrow if he continues to improve Plan I have discussed the patient's case and plan of care with Dr. Hernandez. Subjective Subjective Date/Time Seen: 12/03/23 14:49 Post Op day: 4 (Attempted hand assisted laparoscopic sigmoid colectomy, Open sigmoid colectomy with colorectal anastomosis, Takedown/mobilization of splenic flexure) Patient reports: no new complaints, feels better, tolerating a regular diet, flatus, bowel movement and afebrile Interval history: Patient seen this morning and again this afternoon. This morning, he reported an increase in abdominal pain last night. He reports it was in his lower abdomen and is pointing specifically at his incision. He had associated nausea with the pain, but no vomiting. He reports his pain has improved into the morning and he is taking the oxycodone. He then had a solid diet for breakfast and lunch today and has done well. His pain has improved. No more nausea. He does still feel slightly bloated since surgery, but no worse than the past few days. WBC trending down to 11,000. Exam Const: General: comfortable and no acute distress Orientation/consciousness: patient oriented x3 GI: Inspection: incision (incisions dry and intact, no erythema) GI Palp: Yes Soft to palpation, Yes Tenderness to palpation present (GI) (incisional tenderness and mild LLQ tenderness) and No Guarding due to palpation present (GI) Auscultation: normal bowel sounds Extrem: General: no calf tenderness and no edema Objective Data Vital Signs Vital Signs: Vital Signs - 24 hr 12/02/23 16:00 12/02/23 19:39 12/02/23 19:44 Temperature 98.0 F 97.7 F Pulse Rate 86 80 Respiratory Rate 18 20 Blood Pressure 150/84 H 149/89 H Pulse Oximetry 96 98 Oxygen Delivery Room Air 12/03/23 04:14 12/03/23 04:13 12/03/23 08:45 Temperature 98.0 F 98.0 F Pulse Rate 89 89 Respiratory Rate 20 20 Blood Pressure 141/81 H 141/81 H Pulse Oximetry 94 94 Oxygen Delivery Room Air Intake/Output Intake/Output: Intake & Output 11/30/23 12/01/23 12/02/23 12/03/23 23:59 23:59 23:59 23:59 Intake Total 2910 2222 2640 1010 Output Total 3000 150 1 Balance -90 2072 2639 1010 Meds/Results Medications: Active Medications Generic Name Dose Route Start Last Admin Trade Name Jacintoq PRN Reason Stop Dose Admin Acetaminophen 650 mg 11/29/23 18:00 12/03/23 13:15 Acetaminophen 325 Mg Tablet PO 650 mg Q6HR ANNETTE Administration Alvimopan 12 mg 11/30/23 21:00 12/03/23 08:46 Alvimopan 12 Mg Capsule PO 12/07/23 20:59 12 mg Q12HR ANNETTE Administration Aspirin 81 mg 11/30/23 09:00 12/03/23 08:46 Aspirin 81 Mg Enteric Tablet PO 81 mg DAILY ANNETTE Administration Enoxaparin Sodium 40 mg 11/30/23 09:00 12/03/23 08:46 Enoxaparin 40 Mg/0.4 Ml Syringe SUB-Q 40 mg DAILY ANNETTE Administration Hydromorphone HCl 0.5 mg 11/29/23 16:38 Hydromorphone Hcl Inj (*Crx) 1 Mg/Ml Syr IV PUSH Q2H PRN Breakthrough Pain Rated 4-6 or NPO Hydromorphone HCl 1 mg 11/29/23 16:38 Hydromorphone Hcl Inj (*Crx) 1 Mg/Ml Syr IV PUSH Q2H PRN Breakthrough Pain Rated 7-10 or NPO Ibuprofen 800 mg in 200 mls @ 400 mls/hr 11/29/23 16:38 11/29/23 18:19 Caldolor 800 Mg/200 Ml IVPB Infused Q6H PRN Infusion Breakthrough Pain Rated 1-3 or NPO Naloxone HCl 0.1 mg 11/29/23 16:38 Naloxone Hcl 0.4 Mg/Ml Vial IV PUSH Q2M PRN Opiate Reversal Ondansetron HCl 4 mg 11/29/23 16:38 12/01/23 17:34 Ondansetron Inj 4 Mg/2 Ml Vial IV PUSH 4 mg Q4H PRN Administration Nausea And Vomiting Oxycodone HCl 2.5 mg 0
[2023-12-03 20:16] VITALS: BP 129/85; PULSE 87; RESP 20; TEMP 36.5; O2SAT 97
[2023-12-04 04:36] LABS: Hemoglobin 13.5 g/dL (14.0-18.0); Mean Corpuscular HGB Conc 33.8 g/dl (32-36); Mean Corpuscular Hemoglobin 30.5 pg (26-34); Mean Corpuscular Volume 90.3 fl (80-100); Mean Platelet Volume 8.7 fl (7.4-10.4); Platelet Count Result 297 k/mm3 (150-375); Red Blood Count 4.43 M/mm3 (4.6-6.20); Red Cell Distribution Width 13.2 % (11.5-14.5); White Blood Count 11.4 K/mm3 (4.5-10.0)
[2023-12-04 04:50] VITALS: BP 139/88; PULSE 81; RESP 20; TEMP 36.6; O2SAT 96
[2023-12-04 04:51] LABS: Anion Gap 9 mmol/L (4-12); Blood Urea Nitrogen 9 mg/dL (9-20); Carbon Dioxide 24 mmol/L (22-30); Chloride 101 mmol/L (98-107); Estimated CRCL calculation 121 ml/min; Estimated Glomerular Filt Rate > 60; Glucose 113 mg/dL (65-110); Potassium 3.2 mmol/L (3.4-5.0); Sodium 134 mmol/L (137-145)
[2023-12-04] MEDS: ACETAMINOPHEN 325 MG TABLET 650 MG PO ×2 (05:59→11:37)
[2023-12-04] MEDS: ENOXAPARIN 40 MG/0.4 ML SYRINGE SUB-Q (08:33)
[2023-12-04] MEDS: ASPIRIN 81 MG ENTERIC TABLET PO (08:33)
[2023-12-04] MEDS: ALVIMOPAN 12 MG CAPSULE PO (08:33)
--- NOTE | 2023-12-04 10:05 | PM.DS ---
DS: Admitting Diagnosis Discharge Date 12/04/2023 Admitting Diagnosis Sigmoid diverticulitis with stricture DS: Discharge Diagnosis Discharge Diagnosis (1) Diverticulitis of sigmoid colon: Code(s): K57.32 - Diverticulitis of large intestine without perforation or abscess without bleeding Status: Acute (2) Stricture of sigmoid colon: Code(s): K56.699 - Other intestinal obstruction unspecified as to partial versus complete obstruction Status: Acute (3) Tobacco abuse: Code(s): Z72.0 - Tobacco use Status: Acute DS: Summary Hospital Course Reason for hospitalization: This is a 58-year-old man who presented for a sigmoid colectomy. He has had multiple episodes of diverticulitis and was found to have a sigmoid stricture. He was evaluated by a Dr. Hernandez in the office and scheduled for surgery. Hospital Course: Patient underwent attempted hand assisted laparoscopic sigmoid colectomy, open sigmoid colectomy with colorectal anastomosis, takedown/mobilization of splenic flexure by Dr. Hernandez on 11/29/2023. He was found to have many adhesions to the sigmoid colon in the pelvis and right lower quadrant. See operative note for details. He was admitted postoperatively and monitored with serial labs and exams. Labs showed mild hypokalemia, which was replaced as needed and monitored. While awaiting bowel function to return he was started on clear liquids postop day 2. Bowel function returned by postop day 3 and his diet was slowly advanced. He was found to have some postoperative leukocytosis, which was likely in response to the surgery, but this was monitored. He was afebrile and showed no signs of any infection. He continued to tolerate his diet and bowels were moving. He was on a solid diet by postop day 4. He did have 1 night where he was having increased incisional pain, but this was treated with analgesics and improved fairly quickly. He was tolerating activity and stable for discharge by postop day 5. His white blood cell count had an overall downward trend and was 11,400 prior to discharge. Follow-up as scheduled with Dr. Hernandez in the next 2 weeks. Time spent discussing smoking cessation with patient: 3 to 10 minutes Status at Discharge Functional status at discharge: independent ambulation Overall status at discharge: patient is progressing back to baseline Time Spent with Patient Time attestation: Total time spent providing and/or coordinating discharge services: Time spent: Greater than 30 minutes Exam Const: General: comfortable and no acute distress Orientation/consciousness: patient oriented x3 Resp: Effort & Inspection: normal respiratory effort Auscultation: clear to auscultation bilaterally Cardio: Rate: regular rate Rhythm: regular rhythm GI: Inspection: non-distended and incision (incisions dry and intact, no erythema) GI Palp: Yes Soft to palpation, Yes Tenderness to palpation present (GI) (very mild expected incisional tenderness) and No Guarding due to palpation present (GI) Auscultation: normal bowel sounds Extrem: General: no calf tenderness and no edema DS: Data Data Completed and Pending Completed studies during hospitalization: Final Diagnosis Sigmoid colon, sigmoidectomy: - Chronic diverticulitis with evidence of previous rupture and scarring - Fibrovascular adhesions with chronic perivascular inflammation - The surgical margin show viable tissue. Reviewed and Electronically Signed by: Mauricio Glover MD 12/03/23 0903 Labs on day of discharge: Labs from last 24 hours 12/04/23 03:43 WBC 11.4 H RBC 4.43 L Hgb 13.5 L Hct 40.0 L MCV 90.3 MCH 30.5 MCHC 33.8 RDW 13.2 Plt Count 297 MPV 8.7 Sodium 134 L Potassium 3.2 L Chloride 101 Carbon Dioxide 24 Anion Gap 9 BUN 9 Creatinine 0.60 L Estim Creat Clear Calc 121 Estimated GFR > 60 Glucose 113 H Calcium 8.0 L Procedures/Treatments: Procedures Operation Jay
[2023-12-04] MEDS: POTASSIUM CHLORIDE 20 MEQ PACKET (FOR LIQUID) 40 MEQ PO (10:10)
== END 2023-12-04 12:20 | disposition home or self-care (01) | DRG 231 ==
LOC: ANH2MED 16:39
PROVIDERS: Nurse Practitioner Family; Surgery; Admitting Provider Surgery; PCP Internal Medicine; Visit Provider Surgery
PROC: 0D1E4Z4 Bypass Large Intestine to Cutaneous, Percutaneous Endoscopic Approach (ICD-10-PCS; principal; 2023-11-29 12:00)
DX: K57.32 Diverticulitis of large intestine without perforation or abscess without bleeding (principal); K56.690 Other partial intestinal obstruction; F17.210 Nicotine dependence, cigarettes, uncomplicated; E78.5 Hyperlipidemia, unspecified; I69.351 Hemiplegia and hemiparesis following cerebral infarction affecting right dominant side; I69.311 Memory deficit following cerebral infarction; Z90.49 Acquired absence of other specified parts of digestive tract; E66.9 Obesity, unspecified; Z68.32 Body mass index [BMI] 32.0-32.9, adult; Z53.31 Laparoscopic surgical procedure converted to open procedure
CPT/HCPCS: 36415; 80048; 85025; 85027; 86850; 86900; 86901; 88307; A9270; C1729; J0360; J0690; J1100; J1170; J1200; J1650; J1741; J1836; J1885; J2405; J2704; J3010; J3480; J7030; J7040; J7120